=== PATIENT | female | born 1950 | race Caucasian/White ===

== ENCOUNTER 2018-05-10 00:37 | Outpatient (CLI) | payer MEDICARE, BC, SELFPAY ==
[2018-05-10 13:09] LABS: Bilirubin Small (Negative); Blood Negative (Negative); Clarity Sl Cloudy; Glucose Negative (Negative); Ketones Trace mg/dL (Negative); Leukocyte Esterase Negative (Negative); Nitrite Negative (Negative); Specific Gravity >= 1.030 (1.005-1.025); Urobilinogen 0.2 EU/dL (Up TO 0.2)
[2018-05-10 13:29] LABS: Bacteria Moderate HPF (Negative); C & S Indicated? No/Sq. Contamination; Casts 10-20 Hyaline LPF (Negative); Crystals Negative HPF (Negative); Epithelial Cells Moderate HPF (Negative); Mucus Moderate (Negative); RBC Negative (0-2)
--- NOTE | 2018-05-10 13:30 | DI.MAMMO_ITS ---
SYMPTOMS/DIAGNOSIS: SCREENING, Z12.31 MAMMOGRAM: Mammograms were interpreted according to the usual protocol including computer analysis with CAD system, tomosynthesis and C view imaging. Comparison is made with exams from 2012 through 2017. The breasts are composed of heterogeneously dense fibroglandular tissue, breast density Category C. Benign calcifications are again noted bilaterally. No suspicious masses or suspicious microcalcifications are visible. IMPRESSION: Category 2 C, negative mammogram with benign findings. Yearly screening mammography is recommended. SA ASSESSMENT OF FINDINGS: Negative with benign findings. Category 2. Patient will receive a letter notifying them of these results. Bi-RADS category C. The breasts are heterogeneously dense, which may obscure small masses.
[2018-05-10 14:08] LABS: ALT 19 U/L (12-78); AST 18 U/L (15-37); Albumin 3.5 g/dL (3.4-5.0); Alkaline Phosphatase 77 U/L (46-116); Anion Gap 11.5 mmol/L (3-11); BUN 18 mg/dL (7-18); Bilirubin, Total 0.4 mg/dL (0.2-1.0); CO2 26.5 mmol/L (21.0-32.0); CREATININE 0.93 mg/dL (0.55-1.02); Calcium 9.5 mg/dL (8.5-10.1); Chloride 105 mmol/L (98-107); Cholesterol 256 mg/dL (50-200); Estimated GFR 59.95 (mL/min/1.73m2); Glucose 124 mg/dL (70-100); HDL Cholesterol 65 mg/dL (40-60); LDL CHOLESTEROL 170 mg/dL (<100); Sodium 143 mmol/L (136-145); TSH (W/Ref FT4) 0.69 uIU/mL (0.358-3.74); Total Protein 7.6 g/dL (6.4-8.2); Triglyceride 66 mg/dL (30-150)
[2018-05-10 14:21] LABS: Vitamin D 25 Total 30.5 ng/ml (30-100)
== END 2018-05-10 00:57 ==
PROVIDERS: PCP Family Medicine; Visit Provider Family Medicine
DX: Z12.31 Encounter for screening mammogram for malignant neoplasm of breast (principal); E78.5 Hyperlipidemia, unspecified; E06.9 Thyroiditis, unspecified; R42 Dizziness and giddiness; M85.80 Other specified disorders of bone density and structure, unspecified site
CPT/HCPCS: 36415; 77063; 77067; 80053; 80061; 82306; 83721; 81003; 81015; 84443

== ENCOUNTER 2018-05-12 07:00 | Outpatient (CLI) | payer MEDICARE, BC, SELFPAY ==
[2018-05-12 13:01] LABS: Bilirubin Negative (Negative); Blood Negative (Negative); Clarity Clear; Glucose Negative (Negative); Ketones Negative (Negative); Leukocyte Esterase Small (Negative); Nitrite Negative (Negative); Specific Gravity 1.015 (1.005-1.025); Urobilinogen 0.2 EU/dL (Up TO 0.2)
[2018-05-12 13:40] LABS: Epithelial Cells Many HPF (Negative); RBC 0-2 (0-2)
[2018-05-12 13:41] LABS: Bacteria Few HPF (Negative); C & S Indicated? No/Sq. Contamination; Casts Negative LPF (Negative); Crystals Negative HPF (Negative); Mucus Trace (Negative); Other Cells Negative (Negative)
== END 2018-05-12 07:20 ==
PROVIDERS: PCP Family Medicine; Visit Provider Family Medicine
DX: N39.0 Urinary tract infection, site not specified (principal)
CPT/HCPCS: 81003; 81015

== ENCOUNTER 2018-05-24 00:53 | Outpatient (CLI) | payer MEDICARE, BC, SELFPAY ==
--- NOTE | 2018-05-24 11:12 | DI.RAD_ITS ---
SYMPTOM/DIAGNOSIS: NECK PAIN, M54.2 CERVICAL SPINE: Odontoid, AP and lateral and bilateral oblique views and flexion and extension views were performed. The odontoid is intact. The lateral masses are well aligned. There is normal alignment of the cervical spine. All levels of the cervical spine show some degree of joint space narrowing, endplate sclerosis and endplate osteophytes. There are degenerative changes of the facets at all levels of the lumbar spine. Narrowing of the neural foramen is seen on the left at C 3-4 and C 6-7 and C 7-T 1. The right neural foramen is somewhat compromised due to patient positioning but there does appear to be multi level neural foraminal narrowing, particularly at C 5-6, C 6-7 and C 7-T 1. No acute fractures or subluxations are seen. No significant subluxations are seen with flexion or extension. The prevertebral soft tissues are unremarkable. IMPRESSION: Moderately severe cervical spondylosis.
== END 2018-05-24 01:13 ==
PROVIDERS: PCP Family Medicine; Visit Provider Family Medicine
DX: M54.2 Cervicalgia (principal); M47.812 Spondylosis without myelopathy or radiculopathy, cervical region
CPT/HCPCS: 72052

== ENCOUNTER 2018-06-01 00:37 | Outpatient (CLI) | payer MEDICARE, BC, SELFPAY ==
--- NOTE | 2018-06-01 07:25 | MERGE_ITS ---
*[facility]* *[facility]* [address] [place] [address] Date of study: 06/01/2018 Transthoracic Echocardiography M-mode, complete 2D, complete spectral Doppler, and color Doppler *STUDY CONCLUSIONS* Impressions: Severe cardiomyopathy. Summary: 1. Left ventricle: The cavity size was mildly dilated. Wall thickness was at the upper limits of normal. Systolic function was severely reduced. The estimated ejection fraction was 25-30%. Diffuse hypokinesis with regional variations. Dyskinesis of the basal-midanteroseptal, anterior, and inferoseptal myocardium. Severe hypokinesis of the basal-midinferior myocardium. 2. Aortic valve: Transvalvular velocity was minimally increased. There was very mild stenosis. 3. Mitral valve: There was mild to moderate regurgitation. 4. Right ventricle: The cavity size was normal. Wall thickness was normal. Systolic function was normal. *PATIENT PRESENTATION* Height: 162.6cm ((64in) ) S/D Pressure: 108 / 65 Weight: 49.9kg ((109.8lb) ) BSA: 1.49m^2 Test start time: 07:35 AM. Test stop time: 08:40 AM. ORDERING Tri Menchaca REFERRING Tri Menchaca PERFORMING Unknown PERFORMING [facility] [employer] CUTTER RT Kristin (R)(GEORGE)DIDI *PROCEDURE DATA* Procedure information: The patient was identified by two identifiers. This study was interpreted by [facility]. Pertinent images and digital data are archived for permanent storage and are available for subsequent review. No prior study was available for comparison. Study status: Routine. Transthoracic echocardiography. M-mode, complete 2D, complete spectral Doppler, and color Doppler. A Transthoracic Echocardiogram was performed. Scanning was performed from the parasternal, apical, subcostal, and suprasternal notch acoustic windows. Images were obtained using an [id number] cardiac ultrasound machine. Study completion: The patient tolerated the procedure well. *CARDIAC ANATOMY* Left ventricle: The cavity size was mildly dilated. Wall thickness was at the upper limits of normal. Systolic function was severely reduced. The estimated ejection fraction was 25-30%. Diffuse hypokinesis with regional variations. Regional wall motion abnormalities: Dyskinesis of the basal-midanteroseptal, anterior, and inferoseptal myocardium. Severe hypokinesis of the basal-midinferior myocardium. Aortic valve: Trileaflet; mildly thickened, mildly calcified leaflets. Mobility was not restricted. Doppler: Transvalvular velocity was minimally increased. There was very mild stenosis. There was no significant regurgitation. VTI ratio of LVOT to aortic valve: 0.46. Valve area (VTI): 1.5cm^2. Indexed valve area (VTI): 1cm^2/m^2. Peak velocity ratio of LVOT to aortic valve: 0.42. Valve area (Vmax): 1.4cm^2. Indexed valve area (Vmax): 0.9cm^2/m^2. Mean velocity ratio of LVOT to aortic valve: 0.47. Valve area (Vmean): 1.5cm^2. Indexed valve area (Vmean): 1cm^2/m^2. Mean gradient (S): 5.4mm Hg. Peak gradient (S): 10.3mm Hg. Aorta: Aortic root: The aortic root was normal in size. Ascending aorta: The ascending aorta was normal in size. Mitral valve: Mildly thickened leaflets. Mobility was not restricted. Doppler: Transvalvular velocity was within the normal range. There was no evidence for stenosis. There was mild to moderate regurgitation. Left atrium: The atrium was normal in size. Right ventricle: The cavity size was normal. Wall thickness was normal. Systolic function was normal. Pulmonic valve: Doppler: Transvalvular velocity was within the normal range. There was no evidence for stenosis. There was no significant regurgitation. Peak gradient (S): 8.6mm Hg. Tricuspid valve: Structurally normal valve. Doppler: Transvalvular velocity was within the normal range. There was no evidence for stenosis. There was no significant regurgitation. Pulmonary artery: Systolic pressure could not be accurately estimated. Right atrium: The atrium was normal in size. Pericardium: There was no pericardial effusion. Systemic veins: Inferior vena cava: Well visualized. The vessel was patent and normal in size. The respirophasic diameter changes were in the normal range (greater than or equal to 50%), consistent with normal central venous pressure. Measurements Left ventricle Value Reference LV ID, ED, PLAX (H) 6.3 cm 3.5 - 6.0 LV ID, ES, PLAX (H) 5.5 cm 2.1 - 4.0 LV PW thickness, ED, PLAX 1.1 cm LV end-diastolic volume, 1-p A2C 152 ml LV ejection fraction, 1-p A2C 17 % LV end-diastolic volume, 1-p A4C 147 ml LV ejection fraction, 1-p A4C 27 % LV e', medial 0.031 m/sec LV E/e', medial 8 Ventricular septum Value Reference IVS thickness, ED, PLAX 0.8 cm LVOT Value Reference LVOT ID, A-P 2.0 cm LVOT area 3.2 cm^2 LVOT peak velocity, S 0.68 m/sec LVOT mean velocity, S 0.51 m/sec LVOT VTI, S 11.9 cm LVOT peak gradient, S 1.9 mm Hg LVOT mean gradient, S 1.2 mm Hg Stroke volume (SV), LVOT DP 38 ml Stroke index (SV/bsa), LVOT DP 25 ml/m^2 Aortic valve Value Reference Aortic valve peak velocity, S 1.6 m/sec Aortic valve mean velocity, S 1.09 m/sec Aortic valve VTI, S 26.0 cm Aortic mean gradient, S 5.4 mm Hg Aortic peak gradient, S 10.3 mm Hg VTI ratio, LVOT/AV 0.46 Aortic valve area, VTI 1.5 cm^2 Velocity ratio, peak, LVOT/AV 0.42 Aortic valve area, peak velocity 1.4 cm^2 Velocity ratio, mean, LVOT/AV 0.47 Aortic valve area, mean velocity 1.5 cm^2 Aortic valve area/bsa, mean velocity 1 cm^2/m^2 Aorta Value Reference Aortic root ID, ED 3.2 cm Ascending aorta ID, A-P, S 2.6 cm Left atrium Value Reference LA ID, A-P, ES 3.0 cm LA ID/bsa, A-P 2.0 cm/m^2 <=2.2 LA area, ES, A4C 14.4 cm^2 8.8 - 23.4 LA area, ES, A2C 15 cm^2 LA volume/bsa, ES, 1-p A4C 27 ml/m^2 LA volume, ES, 2-p 38 ml LA volume/bsa, ES, 2-p 25 ml/m^2 LA/aortic root ratio 0.94 Mitral valve Value Reference Mitral E-wave peak velocity 0.26 m/sec Mitral A-wave peak velocity 0.82 m/sec Mitral E/A ratio, peak 0.32 Right atrium Value Reference RA area, ES, A4C 9.2 cm^2 8.3 - 19.5 Systemic veins Value Reference Estimated CVP 10 mm Hg Pulmonic valve Value Reference Pulmonic peak gradient, S 8.6 mm Hg Legend: (L) and (H) gladys values outside specified reference range. I have personally reviewed the images and have reviewed and edited the reported findings. Electronically signed by Harry Christianson 06/01/2018 09:21
== END 2018-06-01 00:57 ==
PROVIDERS: PCP Family Medicine; Visit Provider Family Medicine
DX: R00.2 Palpitations (principal); R42 Dizziness and giddiness; I42.9 Cardiomyopathy, unspecified; I50.1 Left ventricular failure, unspecified; I35.0 Nonrheumatic aortic (valve) stenosis
CPT/HCPCS: 93306

== ENCOUNTER 2018-06-03 01:00 | Outpatient (CLI) | payer MEDICARE, BC, SELFPAY ==
--- NOTE | 2018-06-03 14:24 | DI.US_ITS ---
SYMPTOMS/DIAGNOSIS: DIZZY AND GIDDINESS, R42 CAROTID ULTRASOUND: There is extensive calcific plaque seen along the common carotid arteries and extending into the internal and external carotid arteries. There are velocity elevations in the right internal carotid artery corresponding to a 50-60% stenosis. Elevated velocities are also seen in both external carotid arteries. The proximal left internal carotid artery shows elevated systolic and diastolic velocity measurements consistent with a greater than 70% stenosis. IMPRESSION: Extensive calcific plaque bilaterally. A 50-60% stenosis of the right internal carotid artery. Greater than 70% stenosis of the proximal left internal carotid artery.
== END 2018-06-03 01:20 ==
PROVIDERS: PCP Family Medicine; Visit Provider Family Medicine
DX: R42 Dizziness and giddiness (principal); I65.23 Occlusion and stenosis of bilateral carotid arteries
CPT/HCPCS: 93225; 93880

== ENCOUNTER 2018-06-03 02:22 | Outpatient (CLI) | payer MEDICARE, BC, SELFPAY ==
--- NOTE | 2018-06-08 10:58 | HOLTER_ITS ---
HOLTER MONITOR DATE OF DICTATION JUNE 08, 2018 STUDY INDICATIONS Dizziness. REQUESTING PROVIDER Tri Menchaca M.D. FINDINGS The patient was monitored for two days. The baseline rhythm was sinus rhythm with intraventricular conduction delay. The average heart rate was 84 beats per minute, range 65 to 123 beats per minute. There was rare ectopy, 361 PVCs and 986 PACs. There were 2 ventricular runs versus atrial tachycardia with aberrancy, the longest 8 beats, the fastest 186 beats per minute. There were no pauses greater than 3 seconds. There was no higher degree heart block. There were 7 patient events, none of these events correlated with arrhythmias. FINAL INTERPRETATION Rare arrhythmias, asymptomatic. Brendon Nicholson M.D. KUTR/tr T - 06/08/18
== END 2018-06-03 02:42 ==
PROVIDERS: PCP Family Medicine; Visit Provider Family Medicine
DX: R42 Dizziness and giddiness (principal); I49.3 Ventricular premature depolarization; I49.1 Atrial premature depolarization
CPT/HCPCS: 93225

== ENCOUNTER 2018-06-07 15:51 | Outpatient (CLI) | payer MEDICARE, BC, SELFPAY | END 2018-06-07 16:11 | PROVIDERS: PCP Family Medicine; Visit Provider Family Medicine | DX: R42 Dizziness and giddiness (principal); I49.3 Ventricular premature depolarization; I49.1 Atrial premature depolarization | CPT/HCPCS: 93226 ==

== ENCOUNTER 2018-06-08 09:35 | Outpatient (CLI) | payer MEDICARE, BC, SELFPAY | END 2018-06-08 09:55 | PROVIDERS: PCP Family Medicine; Referring Provider Family Medicine; Visit Provider Student in an Organized Health Care Education/Training Program | DX: R42 Dizziness and giddiness (principal); I49.3 Ventricular premature depolarization; I49.1 Atrial premature depolarization | CPT/HCPCS: 93227 ==

== ENCOUNTER 2018-06-14 00:03 | Outpatient (CLI) | payer MEDICARE, BC, SELFPAY ==
--- NOTE | 2018-06-14 07:33 | MERGEMPI_ITS ---
*[facility]* *[facility]* [address] [place] [address] Myocardial Perfusion Imaging - SPECT Kris protocol Date of study: 06/14/2018 *PATIENT PRESENTATION* Height: 162.6cm (64in) Blood Pressure: Weight: 50kg (110lb) BSA: 1.5m^2 Referring physician: Jamie Clark MD Ordering physician: Tri Menchaca Impressions: - Abnormal study after maximal exercise. - Abnormal contraction consistent with cardiomyopathy. Summary: 1. Myocardial perfusion imaging: There is a moderate sized, moderately intense, partially reversible defect involving the inferolateral wall(s). This suggests moderate ischemia in the distribution of the left circumflex coronary artery. Overall ischemia: small to moderate. 2. The calculated left ventricular ejection fraction after stress: 19%. Diffuse left ventricular regional motion abnormalities. There is dyskinesis involving the lateral wall(s) of the left ventricle. 3. Stress: The target heart rate was achieved. Indication: I42.9, Z01.810. History: REASON FOR TESTING: SINCE MARCH 2018 PATIENT HAS HAD TWO TO THREE EPISODES OF BLURRY VISION, LIGHTHEADEDNESS, FEELING OF BEING HOT AND CLAMMY THAT SUBSIDE WITH SITTING DOWN AND GETTING COOL AIR. PATIENT DOES REPORT MILD STIFF NECK TODAY. PATIENT DENIES CHEST PAIN/LIGHTHEADEDNESS UPON ARRIVAL TO TESTING TODAY. SIGNIFICANT PAST MEDICAL HISTORY: SEVERE CARDIOMYOPATHY WITH EF 25-30% (06/01/2018), LEFT CAROTID STENOSIS GREATER THAN 70%, CARDIOMYOPATHY, GERD. SMOKING STATUS: CURRENT SMOKER. 49 YEARS, 1 PPD HISTORY. EXERCISE ROUTINE: PILATES 1X PER WEEK AND DAILY ADL'S. Risk factors: Current tobacco use. Dyslipidemia. Cholesterol: 256mg/dl. HDL: 65mg/dl. LDL: 170mg/dl. Triglycerides: 66mg/dl. ALLERGIES: NO KNOWN ALLERGIES. MEDICATIONS: LISINOPRIL 2.5 MG DAILY, ATORVASTATIN 40 MG HS, ASPIRIN 81 MG DAILY, ACETAMINOPHEN 650 MG PRN, IBUPROFEN 400 MG PRN, NITROGLYCERIN 0.4MG PRN CHEST PAIN. Imaging Technique: Protocol: Kris protocol. Acquisition: Gated SPECT; 1 day - rest/stress. The patient was imaged in the supine position. Attenuation correction used. Isotope administration: - Rest. Tc[99m]-sestamibi. Dose: 10.6mCi. Injection time: 11:15 AM. Injection to stress time: 00:45. - Stress. Tc[99m]-sestamibi. Dose: 31.3mCi. Injection time: 01:50 PM. 1-2 min before end of exercise Baseline ECG: SINUS BRADYCARDIA. DOWNWARD SLOPING ST SEGMENTS IN INFERIOR LEADS. HR 58 BPM. Stress protocol: + +---+ + !Stage !HR !BP (mmHg) ! + +---+ + !Baseline supine !58 !126/80 (95) ! + +---+ + !Baseline standing !86 !110/80 (90) ! + +---+ + !Stage I; 1.7mph, 10degrees; 3 min !106!130/80 (97) ! + +---+ + !Stage II; 2.5mph, 12degrees; 3 min!128!140/90 (107)! + +---+ + !Peak stress !140! ! + +---+ + !Recovery; 1 min !133!110/78 (89) ! + +---+ + !Recovery; 3 min !86 !120/80 (93) ! + +---+ + !Recovery; 6 min !80 !112/80 (91) ! + +---+ + !Recovery; 9 min !77 !110/80 (90) ! + +---+ + * Stress results: STRESS TEST ENDED IN 6 MINUTES 32 SECONDS DUE TO FATIGUE AND SHORTNESS OF BREATH. NORMAL HEART RATE RESPONSE TO EXERCISE. 30 mm/Hg DROP IN BLOOD PRESSURE UPON IMMEDIATE RECOVERY, OTHERWISE NORMAL RESPONSE TO EXERCISE. MAX HEART RATE: 140 92 % OF TARGET HEART RATE ACHIEVED. MET'S: 7.84 OCCASIONAL PVC'S DURING EXERCISE AND DURING THE FIRST 6 MINUTES RECOVERY. NO ANGINA. UPWARD SLOPING ST SEGMENT DEPRESSIONS IN V4, V5 AND V6 AT 4 MINUTES 39 SECONDS, BECOMING DOWNWARD SLOPING AT 2 MINUTES 49 SECONDS RECOVERY. DOWNWARD SLOPING ST SEGMENT DEPRESSION IN V4, V5 AND V6 PERSISTS TO 15 MINUTES 7 SECONDS RECOVERY WHERE THEY RETURN TO BASELINE. FUNCTIONAL CAPACITY: ABOVE AVERAGE CAPACITY. Maximal heart rate during stress was 140bpm (92% of maximal predicted heart rate). The maximal predicted heart rate was 152bpm. The target heart rate was achieved. The rate-pressure product for the peak heart rate and blood pressure was 81370aa Hg/min. Myocardial perfusion: Imaging information: gated. There is a moderate sized, moderately intense, partially reversible defect involving the inferolateral wall(s). This suggests moderate ischemia in the distribution of the left circumflex coronary artery. Overall ischemia: small to moderate. Ventricular Function (Wall Motion): The calculated left ventricular ejection fraction after stress: 19%. Diffuse left ventricular regional motion abnormalities. There is dyskinesis involving the lateral wall(s) of the left ventricle. Study data: Jamie Clark MD supervised and was readily available during the procedure. This study was interpreted by [facility]. Study status: Routine. Consent: The risks, benefits, and alternatives to the procedure were explained to the patient and informed consent was obtained. Procedure: Initial setup. A baseline ECG was recorded. Surface ECG leads and manual cuff blood pressure measurements were monitored. Heart sounds: Normal. Lung sounds: Normal. Treadmill exercise testing was performed using the Kris protocol. Study completion: All catheters inserted during the procedure were removed. The patient tolerated the procedure well and was discharged from the lab. Discharge: The patient left the laboratory in stable condition. Birthdate: Patient birthdate: 1950. Sex: Gender: female. Study date: Study date: 06/14/2018. Study time: 00:01 AM. Electronically signed by Jamie Clark MD 06/14/2018 16:15
== END 2018-06-14 00:23 ==
PROVIDERS: PCP Family Medicine; Visit Provider Family Medicine
DX: I42.9 Cardiomyopathy, unspecified (principal); R00.2 Palpitations; R94.30 Abnormal result of cardiovascular function study, unspecified; I50.1 Left ventricular failure, unspecified; E78.5 Hyperlipidemia, unspecified; F17.210 Nicotine dependence, cigarettes, uncomplicated; I25.10 Atherosclerotic heart disease of native coronary artery without angina pectoris
CPT/HCPCS: 78452; 93016; 93018; 99205; 99215; 93017

== ENCOUNTER 2018-08-23 01:35 | Outpatient (CLI) | payer MEDICARE, BC, SELFPAY ==
--- NOTE | 2018-08-23 14:09 | DI.CT_ITS ---
SYMPTOM/DIAGNOSIS: RUL MASS, R91.1, NODULE RUL CHEST CT: No prior exams are available. The requisition indicates a 7 mm. nodule in the right upper lobe. There is a nodule in the right lobe of the thyroid measuring 3.1 cm. Other smaller thyroid nodules are also present. There is no evidence of adenopathy. There are atherosclerotic changes of the aorta but no evidence of an aneurysm. There is left atrial and left ventricular dilatation. There are no pleural or pericardial effusions. There are underlying changes of centrilobular emphysema. There are two adjacent small spiculated lesions seen in the right upper lobe, one measuring 7 mm. and an adjacent nodule measuring 3- 4 mm. A bleb is seen in the right lower lobe. There is nodularity of the wall of the bleb. There is scarring near the right lung apex. A small area of scarring is seen medially in the left upper lobe. No pleural or pericardial effusions are seen. The bones appear osteopenic. No compression fracture, lytic or blastic lesions are identified. There are severe degenerative disc changes in the upper lumbar spine. The liver is partially included on the exam and there is a mass in the medial right lobe measuring 4.7 by 3.9 cm. This was not noted on a previous abdomen ultrasound from 2015. The patient is status post cholecystectomy. No biliary dilatation is seen. IMPRESSION: 1. Two adjacent nodules in the right upper lobe measuring 7 and 4 mm. A bleb is seen in the right lower lobe with nodular wall enhancement. The findings could represent malignancy or may be infectious. A PET scan could be considered for further evaluation. 2. Liver lesion could represent a metastatic or primary lesion. 3. Thyroid nodules, these were previously evaluated with an ultrasound of neck on 04/22/17.
[2018-08-23] MEDS: Omnipaque 350 MG/ML 100 ML BTL IJ (14:44)
== END 2018-08-23 01:55 ==
PROVIDERS: PCP Family Medicine; Visit Provider Family Medicine
DX: R91.1 Solitary pulmonary nodule (principal); E04.9 Nontoxic goiter, unspecified; M85.88 Other specified disorders of bone density and structure, other site; K76.89 Other specified diseases of liver; R91.8 Other nonspecific abnormal finding of lung field
CPT/HCPCS: 71260; J3490

== ENCOUNTER 2018-09-27 08:03 | Outpatient (CLI) | payer MEDICARE, BC, SELFPAY | END 2018-09-27 08:23 | PROVIDERS: PCP Family Medicine; Visit Provider Internal Medicine Interventional Cardiology | DX: I42.9 Cardiomyopathy, unspecified (principal); I25.10 Atherosclerotic heart disease of native coronary artery without angina pectoris; R91.8 Other nonspecific abnormal finding of lung field | CPT/HCPCS: 99214; 93005; 93010 ==

== ENCOUNTER 2018-09-27 12:12 | Outpatient (CLI) | payer MEDICARE, BC, SELFPAY ==
[2018-09-27 12:54] LABS: HCT 34.2 % (36.0-46.0); HGB 11.2 g/dL (12.0-15.5); Mean Corp. HGB Concentration 32.7 g/dL (32.0-36.0); Mean Corpuscular Hemoglobin 31.7 pg (27.0-33.0); Mean Corpuscular Volume 96.9 fL (80-95); Mean Platelet Volume 10.1 fL (8.0-11.0); Platelet Count 249 x1000/uL (130-400); RBC 3.53 m/cumm (4.00-5.20); RBC Distribution Width 13.9 % (11.7-14.6); White Blood Cell Count 9.44 k/cumm (4.4-10.8)
[2018-09-27 14:01] LABS: BUN 14 mg/dL (7-18); CREATININE 0.67 mg/dL (0.55-1.02); NT-proBNP 3291 pg/mL
[2018-09-28 13:27] LABS: Lyme Ab w Rflx to Lyme Confirm Negative
== END 2018-09-27 12:32 ==
PROVIDERS: PCP Family Medicine; Visit Provider Internal Medicine Interventional Cardiology
DX: I42.5 Other restrictive cardiomyopathy (principal); R06.09 Other forms of dyspnea; R53.83 Other fatigue; I42.9 Cardiomyopathy, unspecified; I25.10 Atherosclerotic heart disease of native coronary artery without angina pectoris; R91.8 Other nonspecific abnormal finding of lung field
CPT/HCPCS: 36415; 84520; 85027; 99214; 82565; 83880; 86618; 93005

== ENCOUNTER 2018-10-12 04:38 | Outpatient (RCR) | payer MEDICARE, BC, SELFPAY | END 2018-11-03 23:59 | disposition home or self-care (01) | LOC: CR 04:38 | PROVIDERS: PCP Family Medicine; Visit Provider Family Medicine | DX: I42.9 Cardiomyopathy, unspecified (principal); Z51.89 Encounter for other specified aftercare ==

== ENCOUNTER 2018-10-13 10:09 | Outpatient (RCR) | payer MEDICARE, BC, SELFPAY | END 2018-11-03 23:59 | disposition home or self-care (01) | LOC: CR 10:09 | PROVIDERS: PCP Family Medicine; Visit Provider Family Medicine | DX: I42.9 Cardiomyopathy, unspecified (principal); Z51.89 Encounter for other specified aftercare ==

== ENCOUNTER 2018-11-04 04:01 | Outpatient (RCR) | payer MEDICARE, BC, SELFPAY | END 2018-12-04 23:59 | disposition home or self-care (01) | LOC: CR 04:01 | PROVIDERS: PCP Family Medicine; Visit Provider Family Medicine | DX: I42.9 Cardiomyopathy, unspecified (principal); Z51.89 Encounter for other specified aftercare ==

== ENCOUNTER 2019-01-03 09:00 | Outpatient (RCR) | payer MEDICARE, BC, SELFPAY | END 2019-01-03 23:59 | disposition home or self-care (01) | LOC: CR 09:00 | PROVIDERS: PCP Family Medicine; Visit Provider Family Medicine | DX: I42.9 Cardiomyopathy, unspecified (principal); Z51.89 Encounter for other specified aftercare | CPT/HCPCS: S9472 ==

== ENCOUNTER 2019-01-18 01:30 | Outpatient (CLI) | payer MEDICARE, BC, SELFPAY ==
--- NOTE | 2019-01-18 10:30 | DI.US_ITS ---
APPROVED REPORT EXAM: Comprehensive 2D, Doppler, and color-flow Echocardiogram Patient Location: Out-Patient [facility] Operator: TY Foster (AE) Rhythm: Bradycardia Indications: cardiomyopathy, CAD, Syncope r55, i42.9, i25.10 Left Ventricle The left ventricle is severely dilated. Left ventricular systolic function is moderate to severely de creased. Left ventricular systolic function is severely decreased. The posterior wall thickness is se verely increased. The septum is normal. The basal anteroseptal wall is hypokinetic. The basal anterio r wall is hypokinetic. The basal anterolateral wall is akinetic. The basal inferoseptal wall is akine tic. The basal inferior wall is akinetic. The basal inferoseptal wall is hypokinetic. The mid anteros eptal wall is hypokinetic. The mid anterior wall is hypokinetic. The mid anterolateral wall is akinet ic. The mid inferoseptal wall is akinetic. The mid inferior wall is akinetic. The mid inferoseptal wa ll is hypokinetic. The apical anteroseptal wall is hypokinetic. The apical anterior wall is hypokinet ic. The apical anterolateral wall is akinetic. The apical inferior wall is akinetic. The apical apex wall is akinetic. There is grade II diastolic dysfunction LVEF is <20%. Right Ventricle The right ventricle is normal size. The right ventricular systolic function is normal. Atria Left atrium is moderately dilated. The right atrium size is normal. Aortic Valve Aortic valve is trileaflet. Moderate aortic valve sclerosis. No hemodynamically significant valvular aortic stenosis. No aortic regurgitation is present. Mitral Valve There is mitral annular calcification. No evidence of mitral valve stenosis. Moderate mitral regurgit ation. Tricuspid Valve The tricuspid valve is normal in structure. Mild tricuspid regurgitation. Pulmonic Valve Pulmonic valve is not well visualized. Trace pulmonic regurgitation. Great Vessels The aortic root size is normal. The IVC is dilated and collapses >50% with inspiration. Pericardium There is no pericardial effusion. 2D Dimensions IVSd 0.62 cm F: 0.6-1.0 LV EDV A2C 106.80 mL PWd 0.94 cm F: 0.6 - 1.0 LV EDV A4C 153.70 mL LVDd 6.13 cm F: 3.9 - 5.3 LA Volume Index A2C 28.31 mL/m2 LVDs 5.41 cm F: 2.2 - 3.5 LA Volume Index A4C 40.66 mL/m2 Aortic Root 3.18 cm F: 2.7 - 3.3 LA Volume Index Biplane 34.29 mL/m2 RA Area A4C 12.26 cm2 LA Area A4C 18.69 cm2 LVOT 2.02 cm (M/F) 1.5-2.5 LA Area A2C 15.76 cm2 LVEF (Teich) 24.79 % EF AP4 25.57 % LVEF (Ash's) 18.88 % F: 54 - 74 EF AP2 18.35 % LV Volume 106.89 mL F: 46 - 106 EF BP 18.88 % LV Volume Index 70.78 mL/m2 F: 29 - 61 FS 11.68 % LV Diastology E/A Ratio 0.7 MED E' 0.05 (<0.07 m/s) LV E/e MED 9.59 (>14) LAT E' 0.06 (<0.1 m/s) LV E/e LAT 7.48 (>14) Aortic Valve LVOT Area 3.19 cm2 LVOT Peak Reji. 0.95 m/s LVOT Mean Reji. 0.70 m/s ALLEY Vmax 0.00 m/s LVOT Peak Gr. 3.59 mmHg ALLEY Vmax Index 1.02 cm2/m2 LVOT Mean Gr. 2.16 mmHg ALLEY Mean Reji. 0.00 m/s LVOT VTI 0.21 m ALLEY Mean Reji. Index 1.17 cm2/m2 AoV Peak Reji. 1.96 (0.5-1.3 m/s) AoV Mean Reji. 1.26 m/s AO Peak GR. 15.30 mmHg AO Mean GR. 7.20 (<5 mmHg) AO VTI 1.50 (0.18-0.25 m) ALLEY (VTI) 0.99 (2.5-4.5 cm2) ALLEY (VTI) Index 0.99 cm/m2 Mitral Valve MV E Max Reji. 0.47 (0.4-1.3 m/s) MVA VTI 4.25 (4.0-6.0 cm2) MV A Velocity 0.68 (0.4-1.3 m/s) E/A Ratio 0.69 MV Decel. Time 413.11 (160-240 msec) MV Peak Gr. 122.08 mmHg MV Regurg Volume 63.50 mL MV PHT 119.80 msec MV RF 48.45 % MVA PHT 1.84 cm2 Conclusion Left Ventricle : The left ventricle is severely dilated. The posterior wall thickness is severely inc reased. The septum is normal. Left ventricular systolic function is moderate to severely decreased. T here a multiple wall motion abnormalities as described above. Left ventricular systolic function is s everely decreased. There is grade II diastolic dysfunction LVEF is <20%. Right Ventricle : The right ventricle is normal size. The right ventricular systolic function is norm al. Atria : Left atrium is moderately dilated. The right atrium size is normal. Aortic Valve : Aortic valve is trileaflet. Moderate aortic valve sclerosis. No hemodynamically signif icant valvular aortic stenosis. No aortic regurgitation is present. Mitral Valve : There is mitral annular calcification. Moderate mitral regurgitation. No evidence of m itral valve stenosis. Tricuspid Valve : The tricuspid valve is normal in structure. Mild tricuspid regurgitation. Pulmonic Valve : Pulmonic valve is not well visualized. Trace pulmonic regurgitation. Great Vessels : The IVC is dilated and collapses >50% with inspiration. There is not enough TR to est imate RVSP Pericardium : There is no pericardial effusion. Compared to prior echocardiogram the EF is more severely depressed.
== END 2019-01-18 01:50 ==
PROVIDERS: PCP Family Medicine; Visit Provider Student in an Organized Health Care Education/Training Program
DX: I25.10 Atherosclerotic heart disease of native coronary artery without angina pectoris (principal); I42.9 Cardiomyopathy, unspecified; R55 Syncope and collapse; I51.7 Cardiomegaly; I50.1 Left ventricular failure, unspecified; I34.8 Other nonrheumatic mitral valve disorders; I10 Essential (primary) hypertension
CPT/HCPCS: 93306

== ENCOUNTER → 2019-01-24 08:56 | Outpatient (BNVA) | payer MEDICARE, BC, SELFPAY | PROVIDERS: PCP Family Medicine; Visit Provider Internal Medicine Cardiovascular Disease | DX: I42.9 Cardiomyopathy, unspecified (principal); I65.22 Occlusion and stenosis of left carotid artery; E78.5 Hyperlipidemia, unspecified | CPT/HCPCS: 99205; 99215 ==

== ENCOUNTER 2019-02-02 11:39 | Outpatient (RCR) | payer MEDICARE, BC, SELFPAY | END 2019-02-03 23:59 | disposition home or self-care (01) | LOC: CR 11:39 | PROVIDERS: PCP Family Medicine; Visit Provider Family Medicine | DX: I42.9 Cardiomyopathy, unspecified (principal); Z51.89 Encounter for other specified aftercare | CPT/HCPCS: S9472 ==

== ENCOUNTER 2019-03-02 11:29 | Outpatient (RCR) | payer MEDICARE, BC, SELFPAY | END 2019-03-05 23:59 | disposition home or self-care (01) | LOC: CR 11:29 | PROVIDERS: PCP Family Medicine; Visit Provider Family Medicine | DX: I42.9 Cardiomyopathy, unspecified (principal); Z51.89 Encounter for other specified aftercare | CPT/HCPCS: S9472 ==

== ENCOUNTER → 2019-03-07 13:20 | Outpatient (BNVA) | payer MEDICARE, BC, SELFPAY | PROVIDERS: PCP Family Medicine; Referring Provider Family Medicine; Visit Provider Internal Medicine Cardiovascular Disease | DX: I42.9 Cardiomyopathy, unspecified (principal); I25.10 Atherosclerotic heart disease of native coronary artery without angina pectoris | CPT/HCPCS: 99214 ==

== ENCOUNTER 2019-03-17 00:35 | Outpatient (CLI) | payer MEDICARE, BC, SELFPAY ==
--- NOTE | 2019-03-17 09:25 | DI.CT_ITS ---
EXAM: CT CHEST WO CLINICAL HISTORY: R93.89 ABNL FINDINGS ON DI IMAGING TECHNIQUE: Noncontrast COMPARISON: CT CHEST W from 08/23/2018 FINDINGS: There has been increased size of several areas of nodularity surrounding a bleb in the right lower l obe when compared with the previous exam. The more superior nodule measures 10 millimeters in diamet er compared with 6 millimeters on the previous exam. The remainder of the findings appear stable. N o new areas of nodularity or infiltration are seen. No pleural or pericardial effusions are identifi ed. The heart is again noted to be enlarged. There has been no change in the right thyroid nodule. No suspicious bony lesions are identified. There has been interval increase in size of previously n oted lesion in the right lobe of the liver. Please see separate CT abdomen and pelvic report. IMPRESSION: Interval increase in size of areas of nodularity surrounding a bleb in the right lower lobe. Other s maller areas of nodularity in the right upper lobe as well as in the left upper lobe appear unchange d.
== END 2019-03-17 00:55 ==
PROVIDERS: PCP Family Medicine; Visit Provider Internal Medicine
DX: R93.89 Abnormal findings on diagnostic imaging of other specified body structures (principal); R91.8 Other nonspecific abnormal finding of lung field
CPT/HCPCS: 71250

== ENCOUNTER 2019-03-17 00:38 | Outpatient (CLI) | payer MEDICARE, BC, SELFPAY ==
[2019-03-17] MEDS: Omnipaque 350 MG/ML 50 ML BTL IJ (08:25)
[2019-03-17] MEDS: Breeza Beverage 473 ML BTL PO (08:27)
[2019-03-17 08:47] LABS: ALT 44 U/L (14-59); AST 71 U/L (15-37); Albumin 3.8 g/dL (3.4-5.0); Alkaline Phosphatase 111 U/L (46-116); Anion Gap 8.1 mmol/L (3-11); BUN 23 mg/dL (7-18); Bilirubin, Total 0.5 mg/dL (0.2-1.0); CO2 27.9 mmol/L (21.0-32.0); CREATININE 1.03 mg/dL (0.55-1.02); Calcium 9.4 mg/dL (8.5-10.1); Chloride 99 mmol/L (98-107); Estimated GFR 53.13 (mL/min/1.73m2); Glucose 90 mg/dL (74-106); Potassium 4.6 mmol/L (3.5-5.1); Sodium 135 mmol/L (136-145); Total Protein 7.8 g/dL (6.4-8.2)
[2019-03-17] MEDS: Omnipaque 350 MG/ML 100 ML BTL IJ (09:45)
--- NOTE | 2019-03-17 09:45 | DI.CT_ITS ---
EXAM: CT ABDOMEN PELVIS W CLINICAL HISTORY: abnl liver on chest ct, R93.5 TECHNIQUE: Post IV and oral contrast. COMPARISON: ABDOMEN ULTRASOUND (P) from 12/29/2014 CT CHEST W from 08/23/2018 CT CHEST WO from 03/17/2019 FINDINGS: There has been significant interval increase in size of the previously noted lesion in the right lob e of the liver, now measuring 7.4 x 6.2 x 6.7 cm. It measured 4.7 x 3.9 cm on the previous exam. No n ew liver lesions are identified. Patient is status post cholecystectomy. The spleen, pancreas and adr enals are unremarkable. A cyst is again noted at the upper pole of the left kidney. The uterus, ovari es and bladder are unremarkable. The appendix, colon and small bowel are also unremarkable. No mass o r adenopathy is seen. There calcification in the abdominal aorta and iliac arteries. The aorta is nor mal in diameter. 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 Degenerativ e disc changes are seen in the spine. 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 IMPRESSION: Marked interval increase in size liver lesions since previous CT of August 23, 2018. Findings could repr esent primary hepatocellular carcinoma or a metastatic lesion. There are no other findings of metasta tic lesions.
== END 2019-03-17 00:58 ==
PROVIDERS: PCP Family Medicine; Visit Provider Family Medicine
DX: I25.10 Atherosclerotic heart disease of native coronary artery without angina pectoris (principal); R93.5 Abnormal findings on diagnostic imaging of other abdominal regions, including retroperitoneum; R91.8 Other nonspecific abnormal finding of lung field; R93.89 Abnormal findings on diagnostic imaging of other specified body structures; K76.89 Other specified diseases of liver
CPT/HCPCS: 36415; 71250; 80053; 74177; 82565; J3490; Q9967

== ENCOUNTER 2019-03-18 13:34 | Outpatient (RCR) | payer MEDICARE, BC, SELFPAY | END 2019-04-05 23:59 | disposition home or self-care (01) | LOC: CR 13:34 | PROVIDERS: PCP Family Medicine; Visit Provider Family Medicine | DX: I42.9 Cardiomyopathy, unspecified (principal); Z51.89 Encounter for other specified aftercare | CPT/HCPCS: S9472 ==

== ENCOUNTER 2019-03-21 08:09 | Outpatient (CLI) | payer MEDICARE, BC, SELFPAY ==
[2019-03-21 12:31] LABS: Prothrombin Time 10.3 sec (9.3-11.0)
[2019-03-22 11:41] LABS: Hepatitis A Antibody IgM Negative (Negative); Hepatitis B Core Antibody Negative (Negative); Hepatitis B surface Ag Negative (Negative); Hepatitis C Ab w Rflx HCV PCR Negative (Negative)
[2019-03-23 10:42] LABS: AFP Tumor Marker <2.5 ng/mL (<8.1)
[2019-03-23 10:55] LABS: CA 19-9 176 U/mL (<35)
[2019-03-23 16:10] LABS: CEA 2.9 ng/mL (See Note)
== END 2019-03-21 08:29 ==
PROVIDERS: PCP Family Medicine; Visit Provider Family Medicine
DX: R16.0 Hepatomegaly, not elsewhere classified (principal); K76.89 Other specified diseases of liver; R97.8 Other abnormal tumor markers
CPT/HCPCS: 36415; 86704; 86709; 86803; 87340; 82105; 82378; 85610; 86301

== ENCOUNTER 2019-04-12 01:58 | Outpatient (CLI) | payer MEDICARE, BC, SELFPAY ==
[2019-04-12 09:17] LABS: HCT 34.9 % (36.0-46.0); HGB 11.7 g/dL (12.0-15.5); Mean Corp. HGB Concentration 33.5 g/dL (32.0-36.0); Mean Corpuscular Hemoglobin 31.5 pg (27.0-33.0); Mean Corpuscular Volume 94.1 fL (80-95); Mean Platelet Volume 9.9 fL (8.0-11.0); Platelet Count 305 x1000/uL (130-400); RBC 3.71 m/cumm (4.00-5.20); RBC Distribution Width 13.5 % (11.7-14.6); White Blood Cell Count 8.01 k/cumm (4.4-10.8)
[2019-04-12 09:32] LABS: Prothrombin Time 10.3 sec (9.3-11.0)
[2019-04-12 09:41] LABS: BUN 14 mg/dL (7-18); Estimated GFR 54.97 (mL/min/1.73m2)
[2019-04-13 11:26] LABS: CA 125 15 U/mL (<30)
== END 2019-04-12 02:18 ==
PROVIDERS: PCP Family Medicine; Visit Provider Internal Medicine
DX: R91.1 Solitary pulmonary nodule (principal); R91.8 Other nonspecific abnormal finding of lung field; R16.0 Hepatomegaly, not elsewhere classified; R97.8 Other abnormal tumor markers; E78.5 Hyperlipidemia, unspecified; I42.9 Cardiomyopathy, unspecified; I25.10 Atherosclerotic heart disease of native coronary artery without angina pectoris
CPT/HCPCS: 36415; 84520; 85027; 86304; 99214; 82565; 85610

== ENCOUNTER 2019-04-15 03:36 | Outpatient (CLI) | payer MEDICARE, BC, SELFPAY ==
--- NOTE | 2019-04-15 09:25 | PFT_ITS ---
PULMONARY FUNCTION TEST REPORT DATE OF SERVICE: April 15, 2019 REQUESTING PROVIDER: Colleen Judd M.D. Spirometry shows mild obstructive airways disease with no significant bronchodilator response. Lung volumes show no evidence of restriction. There is mild hyperinflation. Diffusion capacity normal. Airways resistance normal. IMPRESSION: Mild obstructive airways disease with no significant bronchodilator response. This is associated with mild hyperinflation. Clinical correlation recommended. LUTHER/lesley D/
[2019-04-15] MEDS: Inhaler, Assist Device 1 EACH MC (14:03)
[2019-04-15] MEDS: Albuterol HFA 18 GM 200 PUFF INH IH (14:03)
== END 2019-04-15 03:56 ==
PROVIDERS: PCP Family Medicine; Visit Provider Internal Medicine
DX: J44.9 Chronic obstructive pulmonary disease, unspecified (principal)
CPT/HCPCS: 94060; 94150; 94726; 94729

== ENCOUNTER → 2019-05-19 10:31 | Outpatient (BNVA) | payer MEDICARE, BC, SELFPAY | PROVIDERS: PCP Family Medicine; Referring Provider Family Medicine; Visit Provider Internal Medicine Cardiovascular Disease | DX: I25.10 Atherosclerotic heart disease of native coronary artery without angina pectoris (principal); I42.9 Cardiomyopathy, unspecified; E06.9 Thyroiditis, unspecified | CPT/HCPCS: 99214 ==

== ENCOUNTER 2019-08-19 02:18 | Outpatient (CLI) | payer MEDICARE, BC, SELFPAY ==
[2019-08-19 10:24] LABS: Calculated LDL 85 mg/dL (<100); Cholesterol 167 mg/dL (<200); HDL Cholesterol 60 mg/dL (40-60); Triglyceride 114 mg/dL (<150)
== END 2019-08-19 02:38 ==
PROVIDERS: PCP Family Medicine; Visit Provider Internal Medicine Cardiovascular Disease
DX: E06.9 Thyroiditis, unspecified (principal); I42.9 Cardiomyopathy, unspecified
CPT/HCPCS: 36415; 80061

== ENCOUNTER → 2019-08-23 10:22 | Outpatient (BNVA) | payer MEDICARE, BC, SELFPAY | PROVIDERS: PCP Family Medicine; Referring Provider Family Medicine; Visit Provider Internal Medicine Cardiovascular Disease | DX: I42.9 Cardiomyopathy, unspecified (principal); I25.10 Atherosclerotic heart disease of native coronary artery without angina pectoris; C22.1 Intrahepatic bile duct carcinoma | CPT/HCPCS: 99214; 99443 ==

== ENCOUNTER → 2019-11-24 10:41 | Outpatient (BNVA) | payer MEDICARE, BC, SELFPAY | PROVIDERS: PCP Family Medicine; Referring Provider Family Medicine; Visit Provider Internal Medicine Cardiovascular Disease | DX: I25.10 Atherosclerotic heart disease of native coronary artery without angina pectoris (principal); I42.9 Cardiomyopathy, unspecified; C22.1 Intrahepatic bile duct carcinoma; J44.9 Chronic obstructive pulmonary disease, unspecified; Z87.891 Personal history of nicotine dependence | CPT/HCPCS: 99214 ==

== ENCOUNTER → 2020-03-16 10:30 | Outpatient (BNVA) | payer MEDICARE, BC, SELFPAY | PROVIDERS: PCP Family Medicine; Referring Provider Family Medicine; Visit Provider Internal Medicine Cardiovascular Disease | DX: I25.10 Atherosclerotic heart disease of native coronary artery without angina pectoris (principal); I42.9 Cardiomyopathy, unspecified; C22.1 Intrahepatic bile duct carcinoma; J44.9 Chronic obstructive pulmonary disease, unspecified; Z87.891 Personal history of nicotine dependence | CPT/HCPCS: 99214 ==

== ENCOUNTER 2021-02-12 13:13 | Outpatient (REF) | payer MEDICARE, BC, SELFPAY ==
--- OUTSIDE RECORDS SUMMARY | 2021-02-12 13:22 | XMS_ITS ---
:1950 Author Care Team Providers Name Role Phone [facility] Primary Care Provider [phone] SPENCER BLANK Primary Care Provider [phone] Allergies Code Code System Name Reaction Severity Status Onset NKDA ? Medications Name Status Start Date Stop Date ? ? acetaminophen 325 mg tablet Active ? Not available Take 2 tablets as needed by oral route. aspirin 81 mg tablet,delayed release Active ? Not available Take 1 tablet every day by oral route. atorvastatin 40 mg tablet Active ? Not av ailable atorvastatin 80 mg tablet Active ? Not av ailable carvedilol 25 mg tablet Completed ? 04/08/19 20 carvedilol 6.25 mg tablet Completed ? 2019 Take 1 tablet twice a day by oral route. isosorbide mononitrate ER 30 mg Active ? Not available tablet,extended release 24 hr lisinopril 2.5 mg tablet Completed ? 020 lisinopril 5 mg tablet Active ? Not avail able Take 1 tablet every day by oral route. metoprolol succinate ER 25 mg Active ? No t available tablet,extended release 24 hr metoprolol tartrate 25 mg tablet Active ? Not available mirtazapine 7.5 mg tablet Completed ? 2019 nitroglycerin 0.4 mg sublingual tablet Active ? Not available Place 1 tablet as needed by sublingual route. prednisone 20 mg tablet Completed ? 10/23/19 19 spironolactone 25 mg tablet Active ? Not available Problems Name Status Onset Date Source ? Non-toxic Multinodular Goiter Active 10/18/2018 ? Thyroiditis Active 10/18/2018 ? Hyperlipidemia Active 10/18/2018 ? Smoker Active 10/18/2018 ? Carpal Tunnel Syndrome Active 10/18/2018 ? Ptosis of Eyelid Active 10/18/2018 ? Dry Eyes Active 10/18/2018 ? Hearing Loss Active 10/18/2018 ? Cardiomyopathy Active 10/18/2018 ? Carotid Artery Stenosis Active 10/18/2018 ? Gastroesophageal Reflux Disease Active 10/18/2018 ? Gastritis Active 10/18/2018 ? Duodenitis Active 10/18/2018 ? Hiatal Hernia Active 10/18/2018 ? Biliary Dyskinesia Active 10/18/2018 ? Degeneration of Intervertebral Disc Active 10/18/2018 ? Low Back Pain Active 10/18/2018 ? Osteopenia Active 10/18/2018 ? Solitary Nodule of Lung Active 10/18/2018 ? Palpation Active 10/18/2018 ? Pain of Left Hip Joint Active 10/18/2018 ? History of Schatzkis Ring Active 10/18/2018 ? Greater Trochanteric Pain Syndrome Active 10/18/2018 ? Plantar Wart of Left Foot Active 10/18/2018 ? Procedures Date Name Performed by ? 10/22/2018 CT, Chest, W/o Contrast Xray [facility] [address] [place], [place] [address] (Work Place) Results Lab Results Date Name Specimen Result Interpretation Description Value Range Status Address ? 04/12/2019 Prothrombin ? No observation ? ? ? [facility] Time recorded. [facility]: [address] [place] [address] 04/12/2019 CBC W/ Auto ? No observation ? ? ? [facility] Diff recorded. [facility]: [address] [place] [address] Past Encounters None recorded. Social History Tobacco Smoking Status Former Smoker Notes: Quit Ap ril 2018, started 16, 1ppd Vaccine List Vaccine Type influenza, injectable, quadrivalent 02/04/2018 02/04/2019 Plan of Care Reminders Provider Appointments None ? ? recorded. Lab None ? ? recorded. Referral None ? ? recorded. Procedures None ? ? recorded. Surgeries None ? ? recorded. Imaging None ? ? recorded. Vitals 04/08/2019 08:30AM Office 30 Height Weight BMI Blood Pressure 162.56 cm 52 kg 19.7 kg/m2 117/56 mm[Hg] 10/22/2018 02:45PM New Patient 44 Height Weight BMI Blood Pressure 162.56 cm 47 kg 17.8 kg/m2 108/50 mm[Hg]
[2021-02-12 16:04] LABS: Abs Immature Grans 0.03 10^3/uL (0.0-0.06); Absolute Basophil Count 0.05 10^3/uL (0.0-0.2); Absolute Eosinophil Count 0.08 10^3/uL (0.0-0.7); Absolute Monocyte Count 0.64 10^3/uL (0.1-0.8); Basophils % 0.6; HCT 28.9 % (36.0-46.0); HGB 8.9 g/dL (11.2-15.7); Immature Grans % 0.4; Lymphocytes % 21.8; MCH 30.7 pg (27.0-33.0); MCHC 30.8 % (32.0-36.0); MCV 99.7 fL (80-95); Monocytes % 8.2; Nucleated RBC 0 %; Platelet Count 270 10^3/uL (130-400); RDW 14.2 % (11.7-14.6); RDW-SD 51.7 fL
[2021-02-12 23:41] LABS: Albumin 3.1 g/dL (3.4-5.0); Alkaline Phosphatase 141 U/L (46-116); BUN 21 mg/dL (7-18); Bilirubin, Total 0.3 mg/dL (0.2-1.0); CREATININE 1.3 mg/dL (0.55-1.02); Calcium 9.2 mg/dL (8.5-10.1); Estimated GFR 40.38 (mL/min/1.73m2); Glucose 96 mg/dL (74-106); Total Protein 7.1 g/dL (6.4-8.2)
[2021-02-12 23:42] LABS: ALT 22 U/L (14-59); AST 17 U/L (15-37); Anion Gap 8.9 mmol/L (3-11); CO2 28.1 mmol/L (21.0-32.0); Chloride 103 mmol/L (98-107); Magnesium 2.1 mg/dL (1.8-2.4); NT-proBNP 1373 pg/mL (<300); Potassium 4.5 mmol/L (3.5-5.1); Sodium 140 mmol/L (136-145)
== END 2021-02-12 13:14 | disposition home or self-care (01) ==
LOC: LBN 13:13
PROVIDERS: PCP Family Medicine; Visit Provider Internal Medicine Cardiovascular Disease
DX: I50.22 Chronic systolic (congestive) heart failure (principal); I42.8 Other cardiomyopathies
CPT/HCPCS: 80053; 83735; 83880; 85025

== ENCOUNTER 2021-10-22 16:12 | Emergency (ER) | payer MEDICARE, SELFPAY ==
[2021-10-22] VITALS (196 sets, daily range): BP systolic 100–133; BP diastolic 56–67; PULSE 92–116; RESP 11–31; TEMP 36.9; O2SAT 95–100
--- NOTE | 2021-10-22 16:45 | RT.EKG_ITS ---
APPROVED REPORT Exam: Resting ECG Reason for Exam: abd pain Patient Location: E HR:106 bpm ECG Measurements Heart Rate [address] 171 P 0 QRSd 93 QRS 54 QT 298 T 181 QTc 397 Conclusion Sinus tachycardia...rate> 99 Nonspecific repol abnormality, diffuse leads...ST dep, T flat/neg, ant/lat/inf. Sinus. T wave inversion and ST depressions in inferior and anterolateral leads, seen in previous. No STEMI. I have reviewed and interpreted ECG and agree with software generated interpretation.
[2021-10-22 17:31] LABS: Abs Immature Grans 0.11 10^3/uL (0.0-0.06); Absolute Basophil Count 0.02 10^3/uL (0.0-0.2); Absolute Eosinophil Count 0.03 10^3/uL (0.0-0.7); Absolute Lymphocyte Count 0.71 10^3/uL (1.2-3.4); Absolute Neutrophil Count 7.82 10^3/uL (1.2-6.7); Basophils % 0.2; Eosinophils % 0.3; HCT 28.4 % (36.0-46.0); HGB 9.5 g/dL (11.2-15.7); Immature Grans % 1.1; Lymphocytes % 7.3; MCHC 33.5 % (32.0-36.0); MCV 99 fL (80-95); MPV 10.2 fL (8.0-11.0); Monocytes % 11.2; Neutrophils % 79.9; Platelet Count 237 10^3/uL (130-400); RBC 2.88 10^6/uL (3.93-5.22); RDW-SD 73.1 fL; WBC 9.79 10^3/uL (4.4-10.8)
[2021-10-22 17:49] LABS: ALT 40 U/L (14-59); AST 114 U/L (15-37); Albumin 2.1 g/dL (3.4-5.0); Alkaline Phosphatase 252 U/L (46-116); Anion Gap 9.7 mmol/L (3-11); BUN 30 mg/dL (7-18); Bilirubin, Total 0.7 mg/dL (0.2-1.0); CO2 23.3 mmol/L (21.0-32.0); CREATININE 1.4 mg/dL (0.55-1.02); Calcium 8.9 mg/dL (8.5-10.1); Chloride 100 mmol/L (98-107); Estimated GFR 36.96 (mL/min/1.73m2); Glucose 128 mg/dL (74-106); Lipase 45 U/L (73-393); Magnesium 1.8 mg/dL (1.8-2.4); Potassium 4.3 mmol/L (3.5-5.1); Sodium 133 mmol/L (136-145); Troponin I < 50 ng/L (<or=60)
--- NOTE | 2021-10-22 18:00 | DI.CT_ITS ---
Exam(s) CT CHEST/ABD/PEL WO EXAM: CT CHEST/ABD/PEL WO CLINICAL HISTORY: abdominal pain, bloating, r/o SBO. TECHNIQUE: Imaging Protocol: Axial computed tomography images with coronal and sagittal reformatted images were created and reviewed CONTRAST MATERIAL: Intravenous: Omnipaque 350 Contrast volume:Noncontrast Oral: yes COMPARISON: CT CT ABDOMEN PELVIS W from 03/17/[address] CHEST WO from 03/17/2019 FINDINGS: CHEST: Thyroid: Enlarged. Tracheobronchial tree: Patent where visualized. Mediastinum and Jennifer: No dominant adenopathy or fluid collection. Pulmonary parenchyma: To material and adjacent scarring in the right upper lobe. Underlying emphysem atous changes. Increasing in size and density of previously noted left upper lobe mass. Interval in crease in the number of bilateral small pulmonary nodules, scattered throughout both lungs. Suture m aterial at the previously noted bleb in the right lower lobe. Pleura: No effusion or pneumothorax. Lymph nodes: Within normal limits. Aorta: Thoracic portion non-dilated. Atherosclerotic changes. Heart: Coronary artery calcifications. Enlarged left ventricle. Bones: Lytic lesion in posterior elements of T4.. Port over right pectoral muscle. ABDOMEN: Liver: prior resection or portion of the right lobe of liver. Innumerable hepatic lesions consistent with metastatic metastases. Marked interval worsening compared with prior. Gallbladder and biliary tract: Status post cholecystectomy. No radiodense calculus or dilation. Pancreas: Normal density, no abnormal calcifications or inflammatory process. Spleen: Normal. Kidneys: Normal size, contour and axis. No radiodense stones or obstructive uropathy. Cyst upper gabe e left kidney. No masses seen. Adrenal glands: No masses seen. Aorta: Abdominal portion non-dilated. Heavily calcified. 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 Lymph nodes: Within normal limits. Soft tissues: Unremarkable. PELVIS: Bladder: Symmetric distention, no gross wall thickening. Bowel: No obstruction or bowel wall thickening. Peritoneal cavity: Ascites seen around the liver and spleen extending along the paracolic gutters and large quantity of pelvic ascites. Bones: Degenerative changes. No visible lytic or blastic lesion. Reproductive organs: Small uterine fibroid.. IMPRESSION: 1. Increasing bilateral pulmonary metastases. Destructive lytic lesion T4 posterior elements. 2. Large quantity of abdominal and pelvic ascites. Innumerable liver lesions, consistent with metas tases, worsening when compared with prior exam. Large quantity of ascites. 3. No evidence of bowel obstruction. RADIATION DOSE DELIVERED: 956.81mGy.cm Total DLP DATA REPOSITORY: All CT scans at this facility are submitted to the National Radiology Data Registry (NRDR) Dose Index Registry (DIR) with the [employer] ([employer]). RADIATION OPTIMIZATION: All CT scans at this facility use at least one of these dose optimization te chniques: automated exposure control; mA and/or kV adjustment per patient size (includes targeted exa ms where dose is matched to clinical indication); or iterative reconstruction.
--- NOTE | 2021-10-22 18:15 | ED.GENADUL_ITS ---
Discharge Plan Disposition Patient Disposition: HOME Condition: Stable Discharge Details Clinical Impression: Cholangiocarcinoma, Lung cancer, Ascites Primary Care Provider: Tri Menchaca ED Provider: Barry Gonzalez Home Meds and New Rx's Prescriptions: Continued Eliquis 5 mg tablet 5 mg PO BID Qty: 180 4RF atorvastatin 40 mg tablet 40 mg PO QHS Qty: 90 5RF Hold Instructions: Home Medication placed on hold at Doctor's office mirtazapine 7.5 mg tablet 7.5 mg PO QHS Qty: 90 6RF nitroglycerin 0.4 mg tablet, sublingual 0.4 mg SL Q5-15M PRN (Reason: chest pain) Qty: 25 4RF Rx Instructions: until response; do not exceed 3 doses per episode metoprolol succinate 100 mg tablet extended release 24 hr 50 mg PO DAILY Qty: 90 4RF acetaminophen 325 MG capsule 650 mg PO PRN PRN No Action acetaminophen 650 mg suppository 650 mg FL Q6H PRN (Reason: fever, mild pain) Qty: 6 0RF Rx Instructions: Hospice Patient hyoscyamine sulfate 0.125 mg tablet,disintegrating 0.125 - 0.25 mg PO Q4H PRN (Reason: secretions) Qty: 24 0RF Rx Instructions: Hospice Patient haloperidol lactate 2 mg/mL concentrate 1 mg PO Q6H PRN (Reason: agitation) Qty: 15 0RF Rx Instructions: Hospice Patient prochlorperazine maleate 10 mg tablet 10 mg PO Q6H PRN (Reason: nausea and vomiting) Qty: 6 0RF Rx Instructions: Hospice Patient bisacodyl [Dulcolax (bisacodyl)] 10 mg suppository 10 mg FL daily PRN (Reason: constipation) Qty: 2 0RF Rx Instructions: Hospice Patient Insert 1 supp FL Daily PRN constipation (no BM in 3 days) lorazepam 1 mg tablet 1 mg PO Q4H PRN (Reason: anxiety, WILSON or nausea) Qty: 6 5RF Rx Instructions: Hospice Patient morphine concentrate 100 mg/5 mL (20 mg/mL) solution 5 - 20 mg PO Q1-4H MDD 5 mL PRN (Reason: moderate to severe pain or shortness of breath) Qty: 30 0RF Rx Instructions: Hospice Patient Discharge Instructions Instructions: Ascites (ED) Additional Instructions: At this time we have placed to referrals for you to both follow-up with palliative care and the hospice team to further discuss management of your cancer. We have also given you referral to the general surgery's office to schedule a therapeutic paracentesis to help with your discomfort. Pending these referrals if you have any new or significant worsening of symptoms please return immediately to the emergency department for reassessment and further treatment as needed. Otherwise continue to take your normally prescribed medications pending these follow-up appointments. Referrals: [facility] [Provider Group] - 3 days (Please call the office tomorrow afternoon for arrangement of follow-up appointment) Tri Menchaca MD, [place] [Primary Care Provider] - 1 week Discharge Data Discharge Date/Time-TO BE ENTERED AT DEPARTURE: 10/22/21 22:46 Medical Decision Making <Yola Fox DO - Last Filed: 10/25/21 20:30> 10/22/21 Dr. Fox 71yo F w/ a h/o lung and bile duct cancer currently undergoing chemotherapy with [facility], GERD, hyperlipidemia and former smoker presents with abdominal pain and bloating for the past few weeks. EKG notes a rate of 106, sinus, less than [address] depressions and T wave inversion in inferior and anterior lateral leads which has been seen in previous EKG, no STEMI. Heart rate 110s on arrival, now low 100s. She is afebrile and appears comfortable. Her abdomen is distended and diffusely tender. Differential diagnosis includes expected chemotherapy adverse reaction, small bowel obstruction, UTI, electrolyte abnormality, dehydration, gastroenteritis, colitis. Will refer for screening labs, urinalysis, CT chest abdomen pelvis with oral contrast. This patient was evaluated during a time of global shortage of iodinated contrast media. Based on guidance from the [employer], best practices, and local institutional approaches, an alternative path for evaluating and managing the patient may have been employed in order to provide optimal care during this shortage. The current situation has been discussed with the patient. Case endorsed to GEAR LAPPING MACHINE OPERATOR Barry Gonzalez to follow up on labs and imaging and final disposition. 10/22/21 Barry Gonzalez 1999-received signout from Yola Fox pending patient CT scan. Patient remains in stable condition with no new or worsening complaints. Review of CT imaging shows significant lung and hepatic findings for cancerous and question of metastasis with patient also having large amount of ascites suspicion of this being secondary to hepatic cancer. No signs of bowel obstruction or other worrisome findings were noted. We are still pending UA but discussed with patient CT findings. After thorough discussion of findings decision was made to place a palliative care consult for patient given that she sees Dr. Menchaca anyways but is waiting a referral. We will also contact general surgeon on-call for discussion of urgent referral to that office for outpatient paracentesis for discomfort and therapeutic purposes but not for diagnostic necessity. Spoke with Dr. Santos who stated that we could place in a referral. Given that patient has no signs of respiratory distress or emergent findings I do feel that patient is able to be safely discharged home which she is agreeable to. Currently discussed return and follow-up precautions for any worsening of symptoms. After discussion of diagnosis and plan of care patient has no further needs, questions, or concerns and states clear understanding to return to the emergency department for any worsening symptoms. This documentation was generated using [email or web address] dictation system, please disregard any oddities of phrase or misspellings. Medical Records Medical records reviewed: Yes I reviewed the patient's medical records. Lab Data Lab results reviewed: Yes I reviewed the patient's lab results. Labs: Laboratory Tests Range/Units 10/22/21 10/22/21 10/22/21 16:54 17:25 17:25 WBC (4.4-10.8) 10^3/uL 9.79 RBC (3.93-5.22) 10^6/uL 2.88 L Hgb (11.2-15.7) g/dL 9.5 L Hct (36.0-46.0) % 28.4 L MCV (80-95) fL 99 H MCH (27.0-33.0) pg 33.0 MCHC (32.0-36.0) % 33.5 RDW (11.7-14.6) % 21.0 H Plt Count (130-400) 10^3/uL 237 MPV (8.0-11.0) fL 10.2 Immature Gran % 1.1 Neutrophils % 79.9 Lymphocytes % 7.3 Monocytes % 11.2 Eosinophils % 0.3 Basophils % 0.2 Nucleated RBC % (0.0-0.3) % 0.0 Absolute Neutrophils (1.2-6.7) 10^3/uL 7.82 H Absolute Lymphocytes (1.2-3.4) 10^3/uL 0.71 L Absolute Monocytes (0.1-0.8) 10^3/uL 1.10 H Absolute Eosinophils (0.0-0.7) 10^3/uL 0.03 Absolute Basophils (0.0-0.2) 10^3/uL 0.02 RBC Morphology See Below Polychromasia Present Poikilocytosis 1+ Anisocytosis 2+ Sodium (136-145) mmol/L 133 L Potassium (3.5-5.1) mmol/L 4.3 Chloride (98-107) mmol/L 100 Carbon Dioxide (21.0-32.0) mmol/L 23.3 Anion Gap (3-11) mmol/L 9.7 BUN (7-18) mg/dL 30 H Creatinine (0.55-1.02) mg/dL 1.4 H Estimated GFR/1.73 m2 (mL/min/1.73m2) 36.96 Glucose (74-106) mg/dL 128 H Calcium (8.5-10.1) mg/dL 8.9 Magnesium (1.8-2.4) mg/dL 1.8 Total Bilirubin (0.2-1.0) mg/dL 0.7 AST (15-37) U/L 114 H ALT (14-59) U/L 40 Alkaline Phosphatase (46-116) U/L 252 H Troponin I (<or=60) ng/L < 50 Total Protein (6.4-8.2) g/dL 6.0 L Albumin (3.4-5.0) g/dL 2.1 L Lipase (73-393) U/L 45 Urine Color Cancelled Urine Clarity Cancelled Urine pH Cancelled Ur Specific Vale Cancelled Urine Protein Cancelled Urine Ketones Cancelled Urine Blood Cancelled Urine Nitrite Cancelled Urine Bilirubin Cancelled Urine Urobilinogen Cancelled Ur Leukocyte Esterase Cancelled Urine Glucose Cancelled ECG Data Attestation: I personally reviewed and interpreted this ECG (s) as follows: Interpretation: rate of 106, sinus, less than [address] depression and T wave inversion in inferior and anterior lateral leads, seen in previous ekg 2019. No STEMI. <Barry Gonzalez NP - Last Filed: 10/28/21 11:00> 71yo F w/ a h/o lung and bile duct cancer currently undergoing chemotherapy with [facility], GERD, hyperlipidemia and former smoker presents with abdominal pain and bloating for the past few weeks. EKG notes a rate of 106, sinus, less than [address] depressions and T wave inversion in inferior and anterior lateral leads which has been seen in previous EKG, no STEMI. Heart rate 110s on arrival, now low 100s. She is afebrile and appears comfortable. Her abdomen is distended and diffusely tender. Differential diagnosis includes expected chemotherapy adverse reaction, small bowel obstruction, UTI, electrolyte abnormality, dehydration, gastroenteritis, colitis. Will refer for screening labs, urinalysis, CT chest abdomen pelvis with oral contrast. This patient was evaluated during a time of global shortage of iodinated contrast media. Based on guidance from the [employer], best practices, and local institutional approaches, an alternative path for evaluating and managing the patient may have been employed in order to provide optimal care during this shortage. The current situation has been discussed with the patient. 1999-received signout from Yola Fox pending patient CT scan. Patient remains in stable condition with no new or worsening complaints. Review of CT imaging shows significant lung and hepatic findings for cancerous and question of metastasis with patient also having large amount of ascites suspicion of this being secondary to hepatic cancer. No signs of bowel obstruction or other worrisome findings were noted. We are still pending UA but discussed with patient CT findings. After thorough discussion of findings decision was made to place a palliative care consult for patient given that she sees Dr. Menchaca anyways but is waiting a referral. We will also contact general surgeon on-call for discussion of urgent referral to that office for outpatient paracentesis for discomfort and therapeutic purposes but not for diagnostic necessity. Spoke with Dr. Santos who stated that we could place in a referral. Given that patient has no signs of respiratory distress or emergent findings I do feel that patient is able to be safely discharged home which she is agreeable to. Currently discussed return and follow-up precautions for any worsening of symptoms. After discussion of diagnosis and plan of care patient has no further needs, questions, or concerns and states clear understanding to return to the emergency department for any worsening symptoms. This documentation was generated using Dragon dictation system, please disregard any oddities of phrase or misspellings. Imaging Data Radiologic Study: Attestation: I personally reviewed and interpreted this imaging study as follows: Imaging: CT Scan Radiologist's impression: FINDINGS: Thyroid: Heterogeneous enlargement of the right thyroid lobe with a 2.3 cm x 2.5 cm dominant heterogeneous nodular lesion on the right on image 7 of series 2, not well characterized by the current exam but possibly a thyroid goiter. Lungs: Regions of surgical suture material in the right lung with associated scarring. Nodular opacity associated with the inferior aspect of the scar on images 39-46 of series 2, possibly the residua of the previously seen pulmonary cavity with marginal nodules in this region on the comparison exam although residual or recurrent disease or scarring could have a similar appearance. 1.5 cm x 1.4 cm region of vague ground-glass opacity redemonstrated in the lingula on image 36 of series 2, also seen on the prior exam. 1.1 cm x 1.7 cm region of irregular spiculated parenchymal opacity in the left upper lobe on image 18 of series 2, enlarged and denser on today's exam compared with the prior study from March 17, 2019. Innumerable scattered small pulmonary nodules, not seen on the prior exam from March 17, 2019. Pleural spaces: No pleural effusion or pneumothorax. Heart: Normal-sized heart. Artifact along the coronary arteries suggesting coronary artery calcification and/or coronary artery stents. Lymph nodes: No pathologically enlarged mediastinal or hilar lymph nodes. Vasculature: No thoracic aortic aneurysm. Bones/joints: No acute fracture seen among the bones of the chest. Soft tissues: No gross soft tissue mass or fluid collection seen in the chest wall. IMPRESSION: 1. Innumerable scattered pulmonary nodules throughout both lungs, not seen on the comparison exam from March 17, 2019. Metastatic disease is suspected given the appearance of the liver. Clinical correlation is recommended. 2. 1.1 cm x 1.7 cm region of irregular spiculated parenchymal opacity in the medial aspect of the left upper lobe, enlarged and denser on today's examination compared with the prior study from March 17, 2019. Further evaluation is recommended to exclude an enlarging lung cancer. HPI <Yola Fox DO - Last Filed: 10/25/21 20:30> General Mode of arrival: ambulatory . Date/Time Provider Initiated Documentation: 10/22/21 16:48 . Limitations to Documentation: no limitations . Information obtained by: patient . HPI Narrative: Patient is a 71-year-old female with a history of lung and bile duct cancer currently undergoing chemotherapy with [facility], GERD, hyperlipidemia and former smoker presents with abdominal pain and bloating for the past few weeks. Patient states she was recently hospitalized at [facility] after a chemotherapy regimen for hypotension. She states her abdominal pain and bloating started at that time but has gotten progressively worse in the last 10 days. She states she is having small amounts of watery and loose diarrhea. But still feels constipated. She states she has taken stool softeners and Tylenol for pain. States she has not taking any narcotics. She admits to nausea but denies any fever, vomiting or urinary symptoms. Related Data Home Medications Medication Instructions Recorded Confirmed acetaminophen 325 mg capsule 650 mg PO PRN PRN 09/05/16 06/11/21 apixaban 5 mg tablet (Eliquis) 5 mg PO BID #180 tabs 06/11/21 10/24/21 atorvastatin 40 mg tablet 40 mg PO QHS #90 tabs 06/11/21 10/24/21 mirtazapine 7.5 mg tablet 7.5 mg PO QHS #90 tabs 06/11/21 10/24/21 nitroglycerin 0.4 mg sublingual 0.4 mg sublingual Q5-15M PRN chest 06/11/21 10/24/21 tablet pain #25 tabs metoprolol succinate 100 mg 50 mg PO DAILY #90 tabs 10/17/21 10/24/21 tablet,extended release 24 hr acetaminophen 650 mg rectal 650 mg FL Q6H PRN fever, mild pain 10/23/21 10/24/21 suppository #6 supp bisacodyl 10 mg rectal suppository 10 mg FL daily PRN constipation #2 10/23/21 10/24/21 (Dulcolax (bisacodyl)) supp haloperidol lactate 2 mg/mL oral 1 mg (0.5 mL) PO Q6H PRN agitation 10/23/21 10/24/21 concentrate #15 mL hyoscyamine sulfate 0.125 mg 0.125 - 0.25 mg PO Q4H PRN 10/23/21 10/24/21 disintegrating tablet secretions #24 tabs prochlorperazine maleate 10 mg 10 mg PO Q6H PRN nausea and 10/23/21 10/24/21 tablet vomiting #6 tabs lorazepam 1 mg tablet 1 mg PO Q4H PRN anxiety, WILSON or 10/24/21 nausea #6 tabs morphine concentrate 100 mg/5 mL 5 - 20 mg (0.25 - 1 mL) PO Q1-4H 10/24/21 (20 mg/mL) oral solution PRN moderate to severe pain or shortness of breath #30 mL Previous Rx's Medication Instructions Recorded apixaban 5 mg tablet (Eliquis) 5 mg PO BID #180 tabs 06/11/21 atorvastatin 40 mg tablet 40 mg PO QHS #90 tabs 06/11/21 mirtazapine 7.5 mg tablet 7.5 mg PO QHS #90 tabs 06/11/21 nitroglycerin 0.4 mg sublingual 0.4 mg sublingual Q5-15M PRN chest 06/11/21 tablet pain #25 tabs metoprolol succinate 100 mg 50 mg PO DAILY #90 tabs 10/17/21 tablet,extended release 24 hr acetaminophen 650 mg rectal 650 mg FL Q6H PRN fever, mild pain 10/23/21 suppository #6 supp bisacodyl 10 mg rectal suppository 10 mg FL daily PRN constipation #2 10/23/21 (Dulcolax (bisacodyl)) supp haloperidol lactate 2 mg/mL oral 1 mg (0.5 mL) PO Q6H PRN agitation 10/23/21 concentrate #15 mL hyoscyamine sulfate 0.125 mg 0.125 - 0.25 mg PO Q4H PRN 10/23/21 disintegrating tablet secretions #24 tabs prochlorperazine maleate 10 mg 10 mg PO Q6H PRN nausea and 10/23/21 tablet vomiting #6 tabs lorazepam 1 mg tablet 1 mg PO Q4H PRN anxiety, WILSON or 10/24/21 nausea #6 tabs morphine concentrate 100 mg/5 mL 5 - 20 mg (0.25 - 1 mL) PO Q1-4H 10/24/21 (20 mg/mL) oral solution PRN moderate to severe pain or shortness of breath #30 mL Allergies Allergy/AdvReac Type Severity Reaction Status Date / Time No Known Allergies Allergy Verified 10/24/21 07:58 General Stated Complaint: Abd Prob ANOOP: 2 Review of Systems <Yola Fox DO - Last Filed: 10/25/21 20:30> All systems reviewed & are unremarkable except as noted in HPI and below Constitutional Constitutional: Denies chills, Denies excessive sweating, Denies fatigue, Denies fever(s), Denies weakness and Denies weight loss Eyes Eyes: Reports system reviewed and no additional complaints, except as documented and Denies blurry vision ENT Ears, Nose, Mouth, and Throat: Denies vertigo, Denies dizziness, Denies otalgia, Denies nasal congestion, Denies sore throat and Denies throat swelling Cardiovascular Cardiovascular: Denies chest pain, Denies syncope, Denies rapid heart rate and Denies dyspnea Respiratory Respiratory: Denies chest congestion, Denies cough, Denies pain on inspiration and Denies dyspnea Gastrointestinal Gastrointestinal: Reports abdominal pain, Reports bloating, Reports constipation, Reports diarrhea and Denies vomiting Genitourinary Genitourinary: Denies hematuria, Denies dysuria and Denies flank pain Musculoskeletal Musculoskeletal: Denies back pain and Denies joint swelling Integumentary/Breasts Skin/Breast: Denies lesions and Denies rash Neurologic Neurologic: Denies behavioral changes, Denies confusion, Denies vertigo, Denies dizziness, Denies syncope, Denies localized weakness and Denies weakness Psychiatric Psychiatric: Denies behavioral changes, Denies confusion and Denies depression Endocrine Endocrine: Denies excessive sweating and Denies fatigue Hematologic/Lymphatic Hematologic/Lymphatic: Denies easy bruising and Denies lymphadenopathy Allergic/Immunologic Allergic/Immunologic: Denies throat swelling PFSH <Yola Fox DO - Last Filed: 10/25/21 20:30> All Active Problems Ascites (Acute) Lung cancer (Chronic) 2020- dx, followed by Oncology at [facility] Atrial fibrillation (Chronic) Hip pain, bilateral (Acute) Decreased hearing (Acute) Cholangiocarcinoma (Acute) Elevated CA 19-9 level (Acute) Liver mass (Acute) bx done 04/01/19 Lung nodule (Acute) Cardiomyopathy (Chronic ~06/01/18) Neck pain (Acute) Actinic keratoses (Acute ~06/01/18) Biliary dyskinesia (Chronic 01/24/15) Degeneration of intervertebral disc (Chronic) Duodenitis (Chronic) 12/04/14; DR. 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) HH (hiatus hernia) (Chronic) [facility] (BARIUM SWALLOW) Hyperlipidemia (Chronic) Left hip pain (Chronic 07/06/14) Multinodular thyroid (Chronic 04/22/17) 2 large solid masses Osteopenia (Chronic) [id number] of 0.8 and -1.4 Ptosis of eyelid, bilateral (Chronic 04/15/16) Right low back pain (Chronic) L4-5 NARROWING 04/28/11 [facility] FLUROSCOPY FOR RIGHT FAR-LATERAL L3- 4 MICRODISECTOMY (SEE SCANNED REPORT) Schatzki's ring (Chronic) [facility]- NON OBSTRUCTING Sensorineural hearing loss, bilateral (Chronic 06/16/16) Thyroiditis (Chronic) multinodular goiter by us 04/23 Right nodule Trochanteric bursitis, left hip (Chronic 03/09/17) Medical History Alcohol intake above recommended sensible limits pt called and LM that she had stopped drinking 06/22 and that at that time she was drinking 1-2 glasses of wine at night. States that now she has an occasional glass of wine, maybe once a month. Carpal tunnel syndrome (01/30/14) by [facility] s/p surgery 2014 Degenerative, intervertebral disc Dry eyes GERD (gastroesophageal reflux disease) Hyperlipidemia Left hip pain Lumbago Osteopenia Palpitations Plantar wart Reflux gastritis (02/27/14) 12/04/14; DR. SANTOS Smoker intermittent quitting Thyroiditis Weight loss Surgical History BACK SURGERY (04/28/11) Cholecystectomy (01/24/15) Gastroscopy (IV) (12/04/14) Dr. Hortencia Santos Open Carpal Tunnel release (04/18/14) RIGHT Family History Mother , AGE 84 CHF (congestive heart failure) Dementia Heart disease Alcohol abuse Father , age 84 Hyperlipidemia Lung cancer Brother Heart disease Brother No problems noted. Maternal Grandfather Cancer Paternal Grandfather No problems noted. Maternal Grandmother Diabetes Heart disease Paternal Grandmother Heart disease Daughter No problems noted. Daughter No problems noted. Social History Smoking/Tobacco Use Status: Former Tobacco Use tobacco type: cigarettes Quit Date: 07/04/18 Pack-years: 50 Tobacco: How many years used: 55 Second Hand Exposure: Yes Smoking risk assessment performed?: Yes Alcohol Intake: former Drug use: Never Substance use type: does not use Caregiver/Support person: No Household members: spouse Do you need help understanding health information?: Rarely Pets and animals: Yes Pets and animals: dog(s) Do you think of yourself as: straight/heterosexual Current gender identity: female What is your relationship status?: How often do you talk on the phone with friends or family?: twice per week How often do you get together with friends or relatives?: once per week Do you belong to any clubs or organized social groups?: yes Panel score (0-1 are the most socially isolated patients): 3 Rosi/Advent: None Do you feel safe in your relationship?: Yes Additional Social history: unable to assess privately Exam <Yola Fox DO - Last Filed: 10/25/21 20:30> Const General: cooperative and no acute distress Orientation: alert, awake and oriented x3 HENMT Head: normal to inspection Ears: hearing grossly normal bilaterally, external ears normal and TM's normal bilaterally General nose exam: external nose normal Face and sinus: normal facial exam Mouth: oral mucosae normal Teeth and gingiva: dentition normal Throat: posterior oropharynx normal Eyes General: appearance normal, both eyes and all related structures Eyelids: eyelids normal Pupils: PERRL EOM: EOM intact bilaterally Neck Neck: normal visual inspection Lymphatic: no lymphadenopathy noted Chest Chest: normal inspection of the chest Resp Effort & Inspection: normal respiratory effort and able to speak in complete sentences Auscultation: clear to auscultation bilaterally Cardio Rate: regular rate Rhythm: regular rhythm GI Inspection: normal to inspection and distended Palpation: soft, not firm, no guarding, no hepatosplenomegaly, no masses and tender (diffuse) Auscultation: normal bowel sounds Back/Spine/Pelvis Back: no CVA tenderness Skin General skin exam: no rashes or lesions noted Neuro General: patient alert and patient awake Cognition: normal cognition Speech: speech normal Gait: normal gait Motor: muscle tone normal throughout Sensory Exam: no sensory deficits noted Extrem General: normal to inspection, full ROM and capillary refill normal Psych Appearance: grossly normal Mental Status: mental status grossly normal Speech and Movement: speech and movement normal Affect: normal affect Thought Process: normal Course <Yola Fox, DO - Last Filed: 10/25/21 20:30> Vital Signs Vital signs: Vital Signs Temperature 98.4 F 10/22/21 16:23 Pulse 116 H 10/22/21 16:23 Respiratory Rate 20 10/22/21 16:23 Blood Pressure 105/56 L 10/22/21 16:23 Temperature 98.4 F 10/22/21 16:23 Pulse 116 H 10/22/21 16:23 Respiratory Rate 20 10/22/21 16:23 Respiratory Effort Non-Labored 10/22/21 17:34 Blood Pressure 105/56 L 10/22/21 16:23 Blood Pressure Position Sitting 10/22/21 16:23 Oxygen Delivery Method Room Air 10/22/21 16:23 Oxygen Flow Rate 0 10/22/21 16:23 Pain Level 8 10/22/21 16:23 Comment 10/22/21 16:23 Lab/Test Results Lab/Test Results: Laboratory Tests Range/Units 10/22/21 10/22/21 17:25 17:25 WBC (4.4-10.8) 10^3/uL 9.79 RBC (3.93-5.22) 10^6/uL 2.88 L Hgb (11.2-15.7) g/dL 9.5 L Hct (36.0-46.0) % 28.4 L MCV (80-95) fL 99 H MCH (27.0-33.0) pg 33.0 MCHC (32.0-36.0) % 33.5 RDW (11.7-14.6) % 21.0 H Plt Count (130-400) 10^3/uL 237 MPV (8.0-11.0) fL 10.2 Immature Gran % 1.1 Neutrophils % 79.9 Lymphocytes % 7.3 Monocytes % 11.2 Eosinophils % 0.3 Basophils % 0.2 Nucleated RBC % (0.0-0.3) % 0.0 Absolute Neutrophils (1.2-6.7) 10^3/uL 7.82 H Absolute Lymphocytes (1.2-3.4) 10^3/uL 0.71 L Absolute Monocytes (0.1-0.8) 10^3/uL 1.10 H Absolute Eosinophils (0.0-0.7) 10^3/uL 0.03 Absolute Basophils (0.0-0.2) 10^3/uL 0.02 Sodium (136-145) mmol/L 133 L Potassium (3.5-5.1) mmol/L 4.3 Chloride (98-107) mmol/L 100 Carbon Dioxide (21.0-32.0) mmol/L 23.3 Anion Gap (3-11) mmol/L 9.7 BUN (7-18) mg/dL 30 H Creatinine (0.55-1.02) mg/dL 1.4 H Estimated GFR/1.73 m2 (mL/min/1.73m2) 36.96 Glucose (74-106) mg/dL 128 H Calcium (8.5-10.1) mg/dL 8.9 Magnesium (1.8-2.4) mg/dL 1.8 Total Bilirubin (0.2-1.0) mg/dL 0.7 AST (15-37) U/L 114 H ALT (14-59) U/L 40 Alkaline Phosphatase (46-116) U/L 252 H Troponin I (<or=60) ng/L < 50 Total Protein (6.4-8.2) g/dL 6.0 L Albumin (3.4-5.0) g/dL 2.1 L Lipase (73-393) U/L 45 Sign Out <Yola Fox DO - Last Filed: 10/25/21 20:30> Sign Out Data: Sign Out Comment: Follow-up on labs and imaging and final disposition. If work- up unremarkable and patient feels better, plan for discharge to home with outpatient follow-up. Last updated by Yola Fox DO at 10/22/21 19:39
[2021-10-22 18:17] LABS: Anisocytosis 2+; Diff Comment RBC Morph Reviewed; Polychromasia Present
[2021-10-22 18:18] LABS: Poikilocytes 1+
[2021-10-22] MEDS: ACETAMINOPHEN 1,000 MG/100 ML BTL 400 MG IVPB (18:26)
[2021-10-22] MEDS: Ondansetron 4 MG/2 ML VIAL IVP (18:26)
[2021-10-22] MEDS: Normal Saline 1,000 ML 1000 ML IV (18:26)
--- NOTE | 2021-10-22 20:34 | DI.VRAD_ITS ---
PROCEDURE INFORMATION: Exam: CT Chest Without Contrast; Diagnostic Exam date and time: 10/22/2021 7:53 PM Age: 71 years old Clinical indication: Other: Oral only , iv contrast contingency protocol; Patient HX: Lung CA TECHNIQUE: Imaging protocol: Diagnostic computed tomography of the chest without contrast. 3D rendering (Not supervised by radiologist): MIP and/or 3D reconstructed images were created by the technologist. Radiation optimization: All CT scans at this facility use at least one of these dose optimization techniques: automated exposure control; mA and/or kV adjustment per patient size (includes targeted exams where dose is matched to clinical indication); or iterative reconstruction. Other contrast: Oral, gastroview, 900; COMPARISON: CT CHEST WO 03/17/2019 9:19 AM FINDINGS: Thyroid: Heterogeneous enlargement of the right thyroid lobe with a 2.3 cm x 2.5 cm dominant heterogeneous nodular lesion on the right on image 7 of series 2, not well characterized by the current exam but possibly a thyroid goiter. Lungs: Regions of surgical suture material in the right lung with associated scarring. Nodular opacity associated with the inferior aspect of the scar on images 39-46 of series 2, possibly the residua of the previously seen pulmonary cavity with marginal nodules in this region on the comparison exam although residual or recurrent disease or scarring could have a similar appearance. 1.5 cm x 1.4 cm region of vague ground-glass opacity redemonstrated in the lingula on image 36 of series 2, also seen on the prior exam. 1.1 cm x 1.7 cm region of irregular spiculated parenchymal opacity in the left upper lobe on image 18 of series 2, enlarged and denser on today's exam compared with the prior study from March 17, 2019. Innumerable scattered small pulmonary nodules, not seen on the prior exam from March 17, 2019. Pleural spaces: No pleural effusion or pneumothorax. Heart: Normal-sized heart. Artifact along the coronary arteries suggesting coronary artery calcification and/or coronary artery stents. Lymph nodes: No pathologically enlarged mediastinal or hilar lymph nodes. Vasculature: No thoracic aortic aneurysm. Bones/joints: No acute fracture seen among the bones of the chest. Soft tissues: No gross soft tissue mass or fluid collection seen in the chest wall. IMPRESSION: 1. Innumerable scattered pulmonary nodules throughout both lungs, not seen on the comparison exam from March 17, 2019. Metastatic disease is suspected given the appearance of the liver. Clinical correlation is recommended. 2. 1.1 cm x 1.7 cm region of irregular spiculated parenchymal opacity in the medial aspect of the left upper lobe, enlarged and denser on today's examination compared with the prior study from March 17, 2019. Further evaluation is recommended to exclude an enlarging lung cancer. PROCEDURE INFORMATION: Exam: CT Abdomen And Pelvis Without Contrast Exam date and time: 10/22/2021 7:53 PM Age: 71 years old Clinical indication: Other: Oral only , iv contrast contingency protocol; Patient HX: Lung CA TECHNIQUE: Imaging protocol: Computed tomography of the abdomen and pelvis without contrast. 3D rendering (Not supervised by radiologist): MIP and/or 3D reconstructed images were created by the technologist. Radiation optimization: All CT scans at this facility use at least one of these dose optimization techniques: automated exposure control; mA and/or kV adjustment per patient size (includes targeted exams where dose is matched to clinical indication); or iterative reconstruction. Other contrast: Oral, gastroview, 900; COMPARISON: CT ABDOMEN PELVIS W 03/17/2019 9:22 AM FINDINGS: Liver: Apparent prior resection of the right lobe of the liver. Diffuse hepatic metastatic disease throughout the remaining liver. Gallbladder and bile ducts: Prior cholecystectomy. No biliary dilatation. Pancreas: Pancreas partially obscured but grossly unremarkable, as seen. Spleen: Grossly unremarkable unenhanced spleen. Adrenal glands: Normal appearing adrenal glands. Kidneys and ureters: 2.3 cm left renal cyst. Otherwise grossly unremarkable unenhanced kidneys. No radiopaque renal calculi or hydronephrosis. Ureters obscured. Stomach and bowel: Stomach partially distended with oral contrast. No small bowel dilatation to suggest obstruction. Colon partially obscured by ascites but grossly unremarkable, as seen. No convincing evidence of diverticulitis or colitis. Appendix: Appendix partially obscured by ascites but normal in caliber and appearance through its visualized portion. Intraperitoneal space: Large amount of ascites throughout the abdominal cavity, likely malignant given the extent of hepatic metastatic disease. No free air. Vasculature: Normal caliber abdominal aorta. Extensive atherosclerotic calcification throughout the abdominal aorta and extending into the pelvic arteries. 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 Lymph nodes: No pathologically enlarged mesenteric, retroperitoneal, or pelvic sidewall lymph nodes. Urinary bladder: Urinary bladder partially collapsed but grossly unremarkable, as seen. Reproductive: Uterus surrounded by ascites but normal in size. Suggestion of a 1.5 cm leiomyoma at the left fundus. Ovaries largely obscured by ascites but not grossly enlarged. Bones/joints: No acute fracture seen among the bones of the abdomen or pelvis. Spinal degenerative change with discogenic degeneration, anterior osteophytes, and posterior osteophytic ridging at multiple levels. Soft tissues: No significant ventral or inguinal hernia. IMPRESSION: 1. Apparent prior resection of the right lobe of the liver. Diffuse hepatic metastatic disease throughout the remaining portion of the liver. 2. Large amount of ascites, likely malignant given the extent of hepatic metastatic disease. 3. No acute bowel pathology demonstrated. Dictated and Authenticated by: Ariel Andres MD. Ordering:ATIYA Aceves MD
[2021-10-22] MEDS: Breeza Beverage 473 ML BTL PO (20:39)
== END 2021-10-22 22:46 | disposition home or self-care (01) ==
PROVIDERS: Physician Assistant; Emergency Provider Nurse Practitioner Family; PCP Family Medicine
DX: C24.9 Malignant neoplasm of biliary tract, unspecified (principal); R18.8 Other ascites; R10.9 Unspecified abdominal pain; C34.90 Malignant neoplasm of unspecified part of unspecified bronchus or lung
CPT/HCPCS: 71250; 80053; 83690; 93005; 96361; 96365; 96375; 99285; 74176; 81003; 83735; 84484; 85025; 93010; 99284; J0131; J2405; J3490

== ENCOUNTER 2021-10-24 07:12 | Day surgery (SDC) | payer MEDICARE, SELFPAY ==
[2021-10-24 07:39] VITALS: BP 116/75; PULSE 91; RESP 20; TEMP 36.1; O2SAT 99
[2021-10-24 09:03] VITALS: BP 119/78; PULSE 89; RESP 20; TEMP 36.1; O2SAT 99
--- NOTE | 2021-10-24 09:12 | W.PREOPHP ---
Assessment and Plan Assessment and plan (1) Ascites: Status: Acute Assessment and plan: She has tense ascites from advanced metastatic cholangiocarcinoma. I explained the risks and benefits of therapeutic paracentesis. She understands, would like to proceed History of Present Illness History of Present Illness Chief Complaint: Abdominal pain Narrative: Gema is a 71-year-old woman who was recently seen in the emergency department with a chief complaint of abdominal pain. She reported a medical history that was significant for metastatic cholangiocarcinoma. She is currently undergoing therapeutic chemotherapy at [facility]. During the time of her emergency department visit, she was found to have some sinus tachycardia, and she underwent a CAT scan of the abdomen and pelvis that demonstrated ascites. Tense ascites was thought to be the primary source of her abdominal pain. In consultation with her primary care physician, as well as the palliative care service, she was referred to me for consideration of therapeutic paracentesis. I was able to meet her in the same-day unit. She did confirm that recent history, and says that she has been experiencing abdominal pain, in the sense of bloating as well as loss of appetite over several weeks. There are no particular exacerbating factors. She has some positional relief. Review of Systems Constitutional Constitutional: Reports anorexia, Reports body ache(s), Reports difficulty sleeping, Reports fatigue, Denies fever(s), Reports lethargy, Reports poor appetite and Reports weakness Eyes Eyes: Reports system reviewed and no additional complaints, except as documented ENT Ears, Nose, Mouth, and Throat: Denies dizziness Cardiovascular Cardiovascular: Denies chest pain, Denies syncope, Reports rapid heart rate, Denies leg edema and Denies dyspnea Respiratory Respiratory: Denies chest congestion, Reports cough and Denies dyspnea Gastrointestinal Gastrointestinal: Reports abdominal pain, Denies hematochezia, Denies constipation, Denies diarrhea, Denies nausea and Denies vomiting Musculoskeletal Musculoskeletal: Reports myalgias and Reports muscle weakness Neurologic Neurologic: Denies dizziness, Denies syncope and Reports weakness Psychiatric Psychiatric: Reports depression Endocrine Endocrine: Reports fatigue Hematologic/Lymphatic Hematologic/Lymphatic: Denies easy bleeding and Denies easy bruising PFSH All Active Problems Ascites (Acute) Lung cancer (Chronic) 2020- , followed by Oncology at [facility] Atrial fibrillation (Chronic) Hip pain, bilateral (Acute) Decreased hearing (Acute) Cholangiocarcinoma (Acute) Elevated CA 19-9 level (Acute) Liver mass (Acute) bx done 04/01/19 Lung nodule (Acute) Cardiomyopathy (Chronic ~06/01/18) Neck pain (Acute) Actinic keratoses (Acute ~06/01/18) Biliary dyskinesia (Chronic 01/24/15) Degeneration of intervertebral disc (Chronic) Duodenitis (Chronic) 12/04/14; DR. 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) HH (hiatus hernia) (Chronic) [facility] (BARIUM SWALLOW) Hyperlipidemia (Chronic) Left hip pain (Chronic 07/06/14) Multinodular thyroid (Chronic 04/22/17) 2 large solid masses Osteopenia (Chronic) [id number] of 0.8 and -1.4 Ptosis of eyelid, bilateral (Chronic 04/15/16) Right low back pain (Chronic) L4-5 NARROWING 04/28/11 [facility] FLUROSCOPY FOR RIGHT FAR-LATERAL L3-4 MICRODISECTOMY (SEE SCANNED REPORT) Schatzki's ring (Chronic) [facility]- NON OBSTRUCTING Sensorineural hearing loss, bilateral (Chronic 06/16/16) Thyroiditis (Chronic) multinodular goiter by us 04/23 Right nodule Trochanteric bursitis, left hip (Chronic 03/09/17) Medical History Alcohol intake above recommended sensible limits pt called and LM that she had stopped drinking 06/22 and that at that time she was drinking 1-2 glasses of wine at night. States that now she has an occasional glass of wine, maybe once a month. Carpal tunnel syndrome (01/30/14) by emg s/p surgery 2014 Degenerative, intervertebral disc Dry eyes GERD (gastroesophageal reflux disease) Hyperlipidemia Left hip pain Lumbago Osteopenia Palpitations Plantar wart Reflux gastritis (02/27/14) 12/04/14; DR. SANTOS Smoker intermittent quitting Thyroiditis Weight loss Surgical History BACK SURGERY (04/28/11) Cholecystectomy (01/24/15) Gastroscopy (IV) (12/04/14) Dr. Hortencia Santos Open Carpal Tunnel release (04/18/14) RIGHT Family History Mother , AGE 84 CHF (congestive heart failure) Dementia Heart disease Alcohol abuse Father , age 84 Hyperlipidemia Lung cancer Brother Heart disease Brother No problems noted. Maternal Grandfather Cancer Paternal Grandfather No problems noted. Maternal Grandmother Diabetes Heart disease Paternal Grandmother Heart disease Daughter No problems noted. Daughter No problems noted. Social History Smoking/Tobacco Use Status: Former Tobacco Use tobacco type: cigarettes Quit Date: 07/04/18 Pack-years: 50 Tobacco: How many years used: 54 Second Hand Exposure: Yes Smoking risk assessment performed?: Yes Alcohol Intake: former Drug use: Never Substance use type: does not use Caregiver/Support person: No Household members: spouse Do you need help understanding health information?: Rarely Pets and animals: Yes Pets and animals: dog(s) Do you think of yourself as: straight/heterosexual Current gender identity: female What is your relationship status?: How often do you talk on the phone with friends or family?: twice per week How often do you get together with friends or relatives?: once per week Do you belong to any clubs or organized social groups?: yes Panel score (0-1 are the most socially isolated patients): 3 Rosi/Hoahaoism: None Do you feel safe in your relationship?: Yes Additional Social history: unable to assess privately Meds Allergies and Home Medications Allergies Allergy/AdvReac Type Severity Reaction Status Date / Time No Known Allergies Allergy Verified 10/24/21 07:58 Home Medications Medication Instructions Recorded Confirmed Type acetaminophen 325 mg capsule 650 mg PO PRN PRN 09/05/16 06/11/21 History apixaban 5 mg tablet (Eliquis) 5 mg PO BID #180 tabs 06/11/21 10/24/21 Rx atorvastatin 40 mg tablet 40 mg PO QHS #90 tabs 06/11/21 10/24/21 Rx mirtazapine 7.5 mg tablet 7.5 mg PO QHS #90 tabs 06/11/21 10/24/21 Rx nitroglycerin 0.4 mg sublingual 0.4 mg sublingual Q5-15M PRN chest 06/11/21 10/24/21 Rx tablet pain #25 tabs metoprolol succinate 100 mg 50 mg PO DAILY #90 tabs 10/17/21 10/24/21 Rx tablet,extended release 24 hr acetaminophen 650 mg rectal 650 mg KS Q6H PRN fever, mild pain 10/23/21 10/24/21 Rx suppository #6 supp bisacodyl 10 mg rectal suppository 10 mg KS daily PRN constipation #2 10/23/21 10/24/21 Rx (Dulcolax (bisacodyl)) supp haloperidol lactate 2 mg/mL oral 1 mg (0.5 mL) PO Q6H PRN agitation 10/23/21 10/24/21 Rx concentrate #15 mL hyoscyamine sulfate 0.125 mg 0.125 - 0.25 mg PO Q4H PRN 10/23/21 10/24/21 Rx disintegrating tablet secretions #24 tabs prochlorperazine maleate 10 mg 10 mg PO Q6H PRN nausea and 10/23/21 10/24/21 Rx tablet vomiting #6 tabs lorazepam 1 mg tablet 1 mg PO Q4H PRN anxiety, WILSON or 10/24/21 Rx nausea #6 tabs morphine concentrate 100 mg/5 mL 5 - 20 mg (0.25 - 1 mL) PO Q1-4H 10/24/21 Rx (20 mg/mL) oral solution PRN moderate to severe pain or shortness of breath #30 mL Exam Const General: cooperative, anxious and ill appearing Nutritional Appearance: underweight Orientation: alert, awake and oriented x3 HENMT Head: normal to inspection Neck Neck: normal visual inspection and supple Resp Effort & Inspection: normal respiratory effort (She is a bit limited at the end of inspiration) Auscultation: clear to auscultation bilaterally Cardio Jugular venous pressure: no JVD Rate: regular rate Heart Sounds: S1 normal and S2 normal GI Inspection: distended Palpation: soft, firm and ascites Percussion: dullness to percussion and fluid wave Auscultation: normal bowel sounds Results Last Vital Signs Temp 97.0 F L 10/24/21 07:39 Resp 20 10/24/21 07:39 Pulse Ox 99 10/24/21 07:39
--- NOTE | 2021-10-24 09:13 | W.PM.DSUDISC ---
Discharge Plan Disposition Patient Disposition: HOME Condition: Good Discharge Details Reason For Visit: PARACENTESIS Attending Provider: Dustin Staples Primary Care Provider: Tri Menchaca Home Meds and New Rx's Prescriptions: Continued Eliquis 5 mg tablet 5 mg PO BID Qty: 180 4RF atorvastatin 40 mg tablet 40 mg PO QHS Qty: 90 5RF Hold Instructions: Home Medication placed on hold at Doctor's office mirtazapine 7.5 mg tablet 7.5 mg PO QHS Qty: 90 6RF nitroglycerin 0.4 mg tablet, sublingual 0.4 mg SL Q5-15M PRN (Reason: chest pain) Qty: 25 4RF Rx Instructions: until response; do not exceed 3 doses per episode metoprolol succinate 100 mg tablet extended release 24 hr 50 mg PO DAILY Qty: 90 4RF acetaminophen 650 mg suppository 650 mg CO Q6H PRN (Reason: fever, mild pain) Qty: 6 0RF Rx Instructions: Hospice Patient hyoscyamine sulfate 0.125 mg tablet,disintegrating 0.125 - 0.25 mg PO Q4H PRN (Reason: secretions) Qty: 24 0RF Rx Instructions: Hospice Patient haloperidol lactate 2 mg/mL concentrate 1 mg PO Q6H PRN (Reason: agitation) Qty: 15 0RF Rx Instructions: Hospice Patient prochlorperazine maleate 10 mg tablet 10 mg PO Q6H PRN (Reason: nausea and vomiting) Qty: 6 0RF Rx Instructions: Hospice Patient bisacodyl [Dulcolax (bisacodyl)] 10 mg suppository 10 mg CO daily PRN (Reason: constipation) Qty: 2 0RF Rx Instructions: Hospice Patient Insert 1 supp CO Daily PRN constipation (no BM in 3 days) lorazepam 1 mg tablet 1 mg PO Q4H PRN (Reason: anxiety, WILSON or nausea) Qty: 6 5RF Rx Instructions: Hospice Patient morphine concentrate 100 mg/5 mL (20 mg/mL) solution 5 - 20 mg PO Q1-4H MDD 5 mL PRN (Reason: moderate to severe pain or shortness of breath) Qty: 30 0RF Rx Instructions: Hospice Patient acetaminophen 325 MG capsule 650 mg PO PRN PRN Discharge Instructions Instructions: Ascites (DC), Paracentesis (DC) Additional Instructions: 1. Use lidocaine (icey-hot) patches as needed for pain around the site 2. Have palliative care notify my office if you need another paracentsis. Referrals: Dustin Staples MD [ [facility] STAFF PHYSICIAN] - Activity:: Activity as Tolerated Remove Dressings/Wound Care:: 24 hours Shower/Bathe:: 24 hours Diet:: As Tolerated Discharge Orders Discharge Orders: Discharge Order (Routine); Ordered 10/24/21 Ordered By: Dustin Staples DS: Diagnosis Discharge Diagnosis (1) Ascites: Status: Acute Asessment and Plan: Ultrasound guided therapeutic paracentesis of 2300 ml for metastatic cancer with ascites.
[2021-10-24 09:30] VITALS: BP 126/72; PULSE 86; RESP 20; TEMP 36.3; O2SAT 100
[2021-10-24] MEDS: Acetaminophen 500 MG TAB PO (09:30)
[2021-10-24 10:05] VITALS: BP 113/59; PULSE 88; RESP 18; TEMP 36.3; O2SAT 98
--- NOTE | 2021-10-24 12:02 | W.PM.OP ---
Date of service: 10/24/21 Time of Service: 12:02 Operative Note Operative Note DATE OF PROCEDURE: 10/24/21 PRE-OP DIAGNOSIS: Metastatic cholangiocarcinoma with ascites POST-OP DIAGNOSIS: same PROCEDURE: Therapeutic paracentesis SURGEON: Dustin Stapels ANESTHESIA TYPE: Local By Surgeon Refer to Anesthesia Record ESTIMATED BLOOD LOSS: 0 COMPLICATIONS: None Patient was transported to: same day Patient's condition: stable Procedure Description: I began by first performing a diagnostic ultrasound to identify ascites. Next, I prepped and draped the anterior abdominal wall in the usual fashion. Then, with the assistance of the ultrasound, I infiltrated the skin of the right lower quadrant with 1% epinephrine. Again, using the ultrasound, I anesthetized down to the peritoneal level. Next, under the direct vision of the ultrasound, I advanced the Zavaleta needle into the peritoneal cavity. I then affixed catheter tubing and drained into a 1 L Vacutainer. As the ascites drained, I gently assisted the patient into the left lateral decubitus position to assist with drainage. I drained 2.3 L of straw-colored ascitic fluid. Upon completion of drainage, I gently removed the Zavaleta needle. I applied bandages, and returned the patient to the recovery unit for further monitoring.
== END 2021-10-24 10:30 | disposition home or self-care (01) ==
PROVIDERS: PCP Family Medicine; Visit Provider Surgery
PROC: 0W9G3ZZ Drainage of Peritoneal Cavity, Percutaneous Approach (ICD-10-PCS; CPT 49082; principal; 2021-10-24 08:30)
DX: R18.0 Malignant ascites (principal); C80.1 Malignant (primary) neoplasm, unspecified; Z79.899 Other long term (current) drug therapy; C34.90 Malignant neoplasm of unspecified part of unspecified bronchus or lung
CPT/HCPCS: 49082

== ENCOUNTER → 2021-11-01 11:26 | Outpatient (BNVA) | payer OTHER, SELFPAY | PROVIDERS: PCP Family Medicine; Referring Provider Family Medicine; Visit Provider Surgery | DX: R18.8 Other ascites (principal) | CPT/HCPCS: 49082; 99348 ==